=== PATIENT | male | born 1980 | race Two or more races ===

== ENCOUNTER 2021-06-30 10:24 | Inpatient (IN) | payer OTHER ==
[~2021-06-30] VITALS: Ht 182.9 cm; Wt 104.3 kg
[2021-06-30] MEDS ORDERED: ZOFRAN4 MG PO (10:51)
[2021-06-30] MEDS ORDERED: RITUXAN10 MG/1 ML IV (10:53)
[2021-06-30] MEDS ORDERED: AMBIEN5 MG PO (10:55)
[2021-06-30] MEDS ORDERED: BACLOFEN5 GM MISC (10:56)
[2021-06-30] MEDS ORDERED: TYLENOL325 M1 PO (10:56)
[2021-06-30] MEDS ORDERED: IBUPROFEN200 MG PO (10:56)
--- NOTE | 2021-06-30 13:44 | NUR ---
DR LOVE IN TO SEE PT
[2021-06-30] MEDS ORDERED: ONDANSETRON ODT8 MG PO (14:55)
[2021-06-30] MEDS ORDERED: BENZONATATE100 MG PO (14:55)
--- NOTE | 2021-06-30 15:38 | NUR ---
PT COMES TO THE FLOOR ALERT AND COOPERATIVE, [facility] 02 AT 5L NC SATS 98% TITRATED TO 2 LPM NC WHILE DOING ADMISSION PT SATS 93%-94% CONSISTANTLY. PT DENIES SOB OR DISCOMFORTS. EDUCATION PROVIDED REGARDING PRONING AND PT IS ABLE TO DEMONSTRATE I/S, USING IT EFFECTIVELY. PT VERBALIZES UNDERSTANDING AND AGREES HE WILL USE THE I/S FREQUENTLY THROUGHOUT THE DAY, RESTING IN DIFFERING POSITIONS INCLUDING ON HIS STOMACHE, AND THAT HE WILL GET UP TO THE CHAIR FREQUENTLY. PT DENIES FURTHER QUESTIONS. FRESH H20 AND NOON MEAL PROVIDED. ORIENTED TO ROOM AND CALL SYSTEM.
[2021-06-30] MEDS ORDERED: VITAMIN D350 MC3 PO (17:15)
--- NOTE | 2021-06-30 17:16 | NUR ---
MED REC COMPLETE
--- NOTE | 2021-06-30 17:50 | NUR ---
PT SATS DIPPING TO 89% CHECKED IN HE WAS SLEEPING. ENCOURAGED HIM TO RESUME USING THE I/S SATS RECOVER TO 94%. PT DENIES SOB. EVENING MEAL ORDERED. PT HAS BEEN UP INDEPENDENTLY IN THE ROOM, STEADY ON HIS FEET.
--- NOTE | 2021-06-30 20:01 | NUR ---
ON ROOM AIR, RESTING, PRONING ON HIS STOMACH, TELE#[address], SATS 90%, CLL LIGHT AND FLUIDS AT BEDSIDE. ON AIRBORNE ISOLATION PRECAUTIONS
--- NOTE | 2021-06-30 21:38 | NUR ---
Up to br, desatted to 79%, increaesd resp and sob noted on return. O@ increaed to 6LNC at this time, once he got back to bed, resp improvfed, prone self to R side. sats to 96%, after a few minutes O2 turned down to 4L, sats stable at 91-93%. comfortbal, stated he had bloody urine, noted 3 pink colored drops in toilet rim, none mixed w urine in toilet, urine clear yellow. pink colored scant amount in wiping paper. Pt declined Lovenox. dry non productive cough present, medicated with Tessalon perles and robotussin syrup w codeine. per sore throat and cough. tolerating fluids well. IVF infusing. tele cpox #[address] call light at bedside
--- NOTE | 2021-06-30 21:43 | NUR ---
DELI MANAGER ROUNDING NOTE. PT'S SA02 NOTED TO BE 84%-86% ON 2 LPM. PASSING THROUGH STATES TO INCREASE O2 TO 4. COMMERCIAL INSURANCE UNDERWRITER TO ROOM. PT REPORTS THAT HE HAS BEEN WORKING ON IS, CAUSING HIM TO COUGH. REPORTS SLIGHT SOB. SAO2 89% ON 4 LPM. VS OBTAINED, PRIMARY RN NOTIFIED OF INCREASED TEMP. PRIMARY RN TO ROOM. PT DENIES FURTHER NEEDS. CALL LIGHT IN REACH. WHITE BOARD UPDATED.
--- NOTE | 2021-06-30 22:28 | NUR ---
resting on his back, aware of proning positoning, turned to left by self, medicated with tylenol 650mg po temp 100.4. desatted to 84% on 4L again. increased to 5L, sats 90%, pt proning again to abd. coop. IVF bolus completed.
--- NOTE | 2021-07-01 00:02 | NUR ---
resting, proning on his abd, O24LNC in place, tele#[address], sats 91%
--- NOTE | 2021-07-01 02:01 | NUR ---
afebrile, skin very moist, bedding and gown changed. dried own skin. on 5LNC, desatted to mid 80's when up to br. sob w exertion noted on return. sats back to 90-93% when back to bed, proning self in bed. voided qs. R eye sclera red, no discharge.
--- NOTE | 2021-07-01 05:35 | NUR ---
PT ON 5L NC, LUNGS CRACKLES AND DIM L LUNGS, DIM R SIDE. TELE/CPOX #[address], HAS DESATTED WHEN UP TO BR. SOB WITH EXERTION PRESENT. DRY COUGH PRESENT, WAS MEDICATED WITH TOBOTUSSIN AND TESSALON PERLES, EFFECTIVE HAS BEEN PRONING SELF, SLEPT. TOLERATING DIET WELL, NO BM. VOIDING QS. HAD SCANT AMOOUNT OF LIGHT PINK DISCHARGE FROM URETHRAL, DR LOVE NOTIFIED. R SCLERA PINK COLORED, NO DRAINAGE. ALERT AND ORIENTED, USES CALL LIGHT
--- NOTE | 2021-07-01 06:54 | NUR ---
pt desatted to 70%, was resting on left side, awakes easily, c/o increaed resp and heavy breathing. R28 labored. proning positioning to abd, tele#[address], O2 increased from 5LNC to 10L, then down to to 6LNC at 0645,sats 94% for last 10 minutes, improved resp 22. still proning on his abd. cont on airborne isolation precautions
--- NOTE | 2021-07-01 07:35 | NUR ---
technical illustrator in room, pt sitting up in bed O2 ^LNC, moist non productive cough at this time, had takes o2 off to scratch his nase, desatted to 70%, denies sob. repositioned self in bed and went up to 88%. then a few minutes later started dessating again, pt was getting up to br. O2 6LNC, resp 26, sob noted on return. incoming RN Mercedes went to room to assess pt, pt stated he will do proning. tele#10 sats 92% changed to OXymask
--- NOTE | 2021-07-01 08:30 | NUR ---
REPORT RECEIVED FROM NIGHT RN AND PT. CARE RESUMED. THE TELE MONITOR SHOWED PT. O2 SAT WAS 73% AND THIS NURSE CHECKED ON PT. HE WAS UP TO THE BATHROOM AND TOOK SEVERAL MINUTES TO RECOVER. PT. BROUGHT URINAL TO BEDSIDE AND ADVISED TO NOT AMBULATE WITHOUT STAFF PRESENT. PT. UNDERSTANDS. PT. ASSISTED WITH PRONING WITH PILLOWS AND EDUCATED ON REPOSITIONING PROTOCOL FOR COVID. PT IS COMPLIANT AND EAGER. HE DENIES PAIN AT THIS TIME. PT. STATES HE BREATHES FROM MOUTH AND SWITCHED TO A OXYMASK. CRACKLES PRESENT IN BASES OF LUNGS. IV SITEW WNL AND FLUSH WELL. DISCUSSED SAFETY, MEDS AND POC. PT. LEFT RESTING WITH CALL LIGHT IN REACH.
--- NOTE | 2021-07-01 11:00 | NUR ---
MONITOR SHOWS PT. 02 SAT 83%. THIS NURSE CHECKED ON PT. HE IS ATTEMPTING TO SIT UP TO EAT. O2 TITRATED TO 13L HIGH FLOW NC WITH HUMMIDITY. PT. ABLE TO EAT FRUIT. PT. USED I.S. AFTER EATING AND RETURNED TO PRONING. ASSISTED WITH REPOSITIONING WITH PILLOWS. DECREASED O2 TO 10L AND O2 SAT WAS 93%. PT. LEFT RESTING WITH CALL LIGHT IN REACH.
--- NOTE | 2021-07-01 16:21 | NUR ---
PT. TITRATED DOWN TO 7L HIGH FLOW NC. O2 SAT REMAINS ABOVE 95%.
--- NOTE | 2021-07-01 19:42 | NUR ---
pt in bed laying left side, O2 11L high flow, tele#[address] his O2 had been increaed while sitting up in bed for dinner as he dessatetd form am shift. sats 80% at this time, labored breathing with turning R26, sob with exertion. O2 increaed to 15L, sats up to 96% after a few minutes, O2 weaned down to 6L. sats 92%, proning on his stomach, sats down to 83% again, O2 increased to 7L after 5 minutes, calmer, resp 22, sats 90-92%.
--- NOTE | 2021-07-01 21:37 | NUR ---
On 7L high flow/humidified O2 NC. tele#[address], desatted with exertion adn while moving/repositioning in bed to 80%, increaed to 10L and after a few minutes decreaed to 6L, stayed on the 82-85%, increaesd to 8L, proning to Left side, then to abd at this time, sats 89-91% 8L high flow, NC. lungs thigh and crackles bilat. sob with exertion present. much improved R eye redness. no drainage. using urinal, voiding qs. tolerating diet well, no emesis. CBG 136, no coverage needed. Alert and oriented, pleasant, cooperative, aware of proning and has been doing that w/o prompting, working on IS too. Moist productive cough of clear thick phlegm. medicated with tessalon perles and robitussin per cough and sore throat, nasal spray at bedside per dry nares. Pt instructed not to take O2 off when nose itches, stated understanding. call light at hands reach
--- NOTE | 2021-07-02 01:06 | NUR ---
DESATTED AGAIN WHEN TURNING, RT IN ROOM, O2 UP TO 12L HIGH FLOW, TELE#[address], SATS 90-91%, SOB WITH EXERTION
--- NOTE | 2021-07-02 02:26 | NUR ---
laying on his stomach, on O2 12 L, sats as per tele/cpox 90%
--- NOTE | 2021-07-02 03:39 | NUR ---
resting, laying on left side, O2 12L High flow NC, tele/cpox #[address], sats 89-91%, has voided, prones self. call light at hands reach
--- NOTE | 2021-07-02 06:11 | NUR ---
pt desatted to 70% when up to urinate at edge of bed on 12L high flow o2 nc. o2 increaed to 15L, took afew minutes to recover. Back on 12L NC, sats 96% laying on his abd proning position
--- NOTE | 2021-07-02 06:47 | NUR ---
pT HAS SLEPT OFF AND ON, INITIALLY AT BEGINING OF SHIFT HE WAS ON 7L HIGH FLOW O2 NC, DESATS WHEN REPOSITONING AND WHEN UP TO EDGE OF BED TO URINATE AND WHEN HE TAKES HIS O2 OFF NARES DUE TO DRINESS. HAS SALINE NASAL DROPS AT BEDSIDE. DROPPED TO LOW 70'S SATS. HAS BEEN INCREASED TO 05/14/10 AND AT CURRENT 12 LITERS, SOB AND INCREASED RESP RATE AND HYPOXIA WITH EXERTION. LUNGS WITH CRACKLES AND COARSE BNILAT ON INITIAL ASSESSMENT, CURRNT CLEAR UPPER LOBES AND CRACKLES AT BASES, MOIST PRODUCTIVE COUGH PRESENT. RECEIVED TESSALON PERLES AND COUGH SYRUP. EFFECTIVE. VOIDING DARK YELLOW URINE QS. TOLERATING SMALL AMOUNTS OF LIQUIDS, CBG 136, NO COVERAGE NEEDED. 2 SL PATENT. PT PRONES AND REPOSITONS SELF, COOP, TELE #[address] ON AIRBORNE ISOLATION PRECAUTIONS.
--- NOTE | 2021-07-02 07:29 | NUR ---
REPORT RECIEVED FROM MIRNA ZIGGY.
--- NOTE | 2021-07-02 08:56 | NUR ---
PT LAYING ON LEFT SIDE WITH NASAL CANNULA. SAT IN MID 80'S. ADMINISTERED MORNING MEDS AND CHECKED BS WNL. PT STATES HE IS FEELING MORE SOB THIS MORNING AND DID NOT SLEEP MUCH DURING THE NIGHT. THE ALARMS WERE TURNED ON ON THE TELE AND WOKE HIM FREQUENTLY. TURNED OFF ALARMS. LUNGS CLEAR. FREQUENT COUGH.
--- NOTE | 2021-07-02 09:49 | NUR ---
PATIENT SITTING UP IN BED TO EAT BREAKFAST. VITALS AND I&O'S CHARTED. CALL LIGHT IN REACH. NO FURTHER NEEDS AT THIST PIOTR.
--- NOTE | 2021-07-02 10:00 | NUR ---
PT LAYING ON BACK ORDERING SOME BREAKFAST. PT STATES HE IS FEELING A LITTLE BETTER THAN THIS MORNING. STARTED REMDESIVIR. PT DENIES HEADACHE OR CONCERNS.
--- NOTE | 2021-07-02 13:21 | NUR ---
PT DESATTED BRIEFLY AFTER TAKING HIS OX OFF TO BLOW HIS NOSE. STATES HE WILL ORDER LUNCH SHORTLY.
--- NOTE | 2021-07-02 16:10 | NUR ---
PT SATTING IN THE MID 80'S, STILL GIVING HIMSELF A BED BATH, THEN WILL DO 'TUMMY TIME'.
--- NOTE | 2021-07-02 18:52 | NUR ---
PT UP TO BEDSIDE COMMODE. TOLERATED WELL. ADDED AN EXTENSION ON THE OXY MASK TUBING. IS BRINGING DINNER TO FRONT. MED BM.
--- NOTE | 2021-07-02 21:30 | NUR ---
ASSESSMENT, VS AND I&O COMPLETED. SCHEDULED MEDS PROVIDED. PRN COUGH MED PROVIDED. SPO2 92% ON 10L OXYMASK. LUNGS CLEAR IN ALL LOBES. ABD SOFT, NONTENDER, BOWEL TONES ACTIVE. CMS INTACT. IVs WNL, CDI, FLUSHED WELL. NO OTHER NEEDS. CALL LIGHT IN REACH.
--- NOTE | 2021-07-02 23:35 | NUR ---
PT RESTING IN BED ON STOMACH, SPO2 93% ON 10L OXYMASK. CALL LIGHT IN REACH.
--- NOTE | 2021-07-03 02:25 | NUR ---
RESTING ON HIS ABD. [id number] 8L , TELECPOX IN PLACE, SATS 94%. NO DISTRESS, VOIDING LIGHT COLORED URINE. TOLERATING FLUIDS WELL
--- NOTE | 2021-07-03 02:58 | NUR ---
PT TURNED FROM PRONING ON HIS SOTMACH TO HIS LEFT SIDE, DESATTED TO 83-85%, ON 8L
--- NOTE | 2021-07-03 03:08 | NUR ---
PT TURNED TO HIS R SIDE, DESSATED TO 82%, ON 8L
--- NOTE | 2021-07-03 03:26 | NUR ---
O2 SATS PER TELE/CPOX 90% AT THIST PIOTR
--- NOTE | 2021-07-03 04:17 | NUR ---
PT PRONING ON HIS ABD AT THIS TIME, CPOX TELE 95% 8L O2.TURNS AND RESPOSITIONS SELF IN BED, ON AIRBORNE ISOLATION PRECAUTIONS
--- NOTE | 2021-07-03 06:25 | NUR ---
O2 sats at 86-88% since weaning off down to 7L. nurse went to room pt was coughing moderate amount of clear-yellow phlegm, took Oxymask off when coughing and blowing nose and sitting up position in bed. dessatted to 70%, O2 increaed to 15L, took a few minutes to recuperate. O2 weaned down to 8L Oxymask again, pt aware of proning positioing, wanted to stay on his back for a little while as "its hard for me to be on my stomach when Tay coughing', sats 90% on 8L on his back.
--- NOTE | 2021-07-03 06:41 | NUR ---
Pt continues on Airborne isolation precautions, on 8L Oxymask at this time. was unable to tolerate weaning down to 7L. Has been weaning up to 15L earlier this shift when he was sitting up coughing and blowing nose and taken O2 off and dessated to 70%. O2 weaned down back to 8L after a few minutes, increased resp rate and labored breathing noted. Lungs with crackles. Pt does proneing positioning often. tolerating liquids well, 2 sl patent. has slept off and on. alert, oriented, cooperative
--- NOTE | 2021-07-03 06:52 | NUR ---
turned self to R side, dessated to 83%, Repositioned back to abd at this time again, on 8L sats as per cpox 96%
--- NOTE | 2021-07-03 07:26 | NUR ---
REPORT RECIEVED FROM MIRNA TRINH.
--- NOTE | 2021-07-03 09:02 | NUR ---
PATIENT GIVEN MORNING MEDICATIONS, SITTING UP TO EAT BREAKFAST AND IS ON NC @ 10L WITH 92% SATS.
--- NOTE | 2021-07-03 10:08 | NUR ---
DR. LOVE IN TO SEE PATIENT. PATIENT WEARING NASAL CANNULA @ 10L TO KEEP SATS AT 91%. TRIAL AT 8L AND PATIENT SATS WERE 88% AND PATIENT RESUMED ON 10L.
--- NOTE | 2021-07-03 10:27 | NUR ---
PATIENT IN BED RESTING WITH EYES CLOSED. VITALS AND I&O'S CHARTED. CALL LIGHT IN REACH. NO FURTHER NEEDS AT THIS TIME.
--- NOTE | 2021-07-03 10:46 | NUR ---
PATIENT IS LYING ON RIGHT SIDE 8L OXYMASK IS ON. PATIENT ONLY ABLE TO EAT 5% OF BREAKFAST. ENCOURAGED PATIENT TO INCREASE PO FLUIDS.
--- NOTE | 2021-07-03 12:26 | NUR ---
DUE TO PRECAUTIONS, I AM UNABLE TO VISIT PT AT THIS TIME. WILL FOLLOW
--- NOTE | 2021-07-03 12:49 | NUR ---
PATIENT IS RESTING IN BED, ENCOURAGED PRONE, 89% O2 SATS.
--- NOTE | 2021-07-03 15:12 | NUR ---
SPOKE WITH PATIENT BY PHONE. PATIENT LIVES AT HOME WITH AND KIDS. IS EMPLOYED. DRIVES AND IS INDEPENDENT WITH AMBULATION. USES NO DME. DISCUSSED POSSIBLE OXYGEN NEED AT DISCHARGE. HE HAS NO PREFERENCE ON WHO TO USE. HE IS NOT SURE HE HAS A NEBULIZER IF NEEDED. THINKS ONE OF THE KIDS MIGHT HAVE ONE. PLANS TO DISCHARGE WITH FAMILY AND FEELS SAFE TO DO SO. FEELS HE HAS FINANCES TO PAY FOR MEDICATIONS, FOOD AND NO WORRIES OF UTILITIES TURNED OFF. PT HAS NO QUESTIONS AT THIS TIME.
--- NOTE | 2021-07-03 15:25 | NUR ---
PATIENT IS PRONING WITH O2 SATS 96%.
--- NOTE | 2021-07-03 16:14 | NUR ---
CALL BACK TO PATIENT'S , LENI, WITH UPDATE.
--- NOTE | 2021-07-03 18:04 | NUR ---
PATIENT IN BED RESTING. VITALS AND I&O'S CHARTED. CALL LIGHT IN REACH. NO FURTHER NEEDS AT THIS TIME.
--- NOTE | 2021-07-03 18:26 | NUR ---
PATIENT IS SITTING UP IN BED TO TRY AND EAT SOME DINNER. PATIENT REMAINS ON 8L, LUNG SOUNDS HAVE LARGELY REMAINED THE SAME THIS MORNING WITH FINE CRACKLES, GOOD AIR MOVEMENT HEARD THROUGHOUT.
--- NOTE | 2021-07-03 19:45 | NUR ---
RECEIVED REPORT FROM DAY SHIFT RN. PATIENT IS RESTING IN BED WATCHING TV. PATIENT DENIES ANY NEEDS. CALL LIGHT IN REACH.
--- NOTE | 2021-07-03 22:50 | NUR ---
PATIENT ASSESMENT COMPLETED. PATIENTS SCHEDULED MEDICATIONS GIVEN PER ORDER. PATIENT DENIES ANY SOB. PATIENT REMAINS ON 8L VIA OXYMASK. PATIENT DENIES ANY PAIN. VITALS TAKEN AND RECORDED. INTAKE AND OUTOUT RECORDED. PATIENTS IV SL X2 AND FLUSH WELL. PATIENT DENIES ANY NEEDS. CALL LIGHT AND BELONGINGS ARE WITHIN REACH.
--- NOTE | 2021-07-03 23:53 | NUR ---
PATIENT IS RESTING IN BED WITH EYES CLOSED, RR 18. CALL LIGHT IN REACH.
--- NOTE | 2021-07-04 01:45 | NUR ---
PATIENT RESTING IN BED ON HIS LEFT SIDE WITH EYES CLOSED, RR 20. CALL LIGHT IN REACH.
--- NOTE | 2021-07-04 03:43 | NUR ---
PATIENT IS RESTING IN BED ON HIS RIGHT SIDE WITH EYES CLOSED, RR 22. TELE # 10 OXYGEN SATURATION IS 98% ON 8L VIA OXYMASK. PATIENTS CALL LIGHT IN REACH.
--- NOTE | 2021-07-04 06:00 | NUR ---
PATIENT ASSESMENT COMPLETED. PATIENT GIVEN PRN COUGH MEDICATION PER ORDER. PATIENT REPORTS SLIGHT SOB. PATIENT ENCOURAGE TO PURSED LIP BREATH AND FOCUS ON SLOWING HIS BREATHING. PATIENT WAS ABLE TO SLOW BREATHING. VITALS TAKEN AND RECORDED. INTAKE AND OUPUT RECORDED. PATIENT DENIES ANY PAIN. PATIENT DENIES ANY NEEDS. URINAL EMPTIED. CALL LIGHT AND BELONGINGS ARE WITHIN REACH.
--- NOTE | 2021-07-04 07:38 | NUR ---
this rn received report from gume castañeda. pt appears to resting this am with cpox in place.
--- NOTE | 2021-07-04 09:00 | NUR ---
THIS RN IN PTS ROOM. PT GOT UP TO USE THE URINAL ON 7L OXYMASK. PT DESATED AND SUSTAINED IN THE 70S THIS RN PLACED PT ON 15L NONREBREATHER, PT SATS IMPROVED WITHIN 2 MINS TO MID 90S. PER THIS RN TO PLACE A ROSALES CATH FOR PT TO RESUME BEDREST. PT DID HAVE A BM AFTER ROSALES PLACEMENT- PT WAS ABLE TO GET UP TO BEDISDE COMMODE WITHOUT DROPPING BELOW 90%
--- NOTE | 2021-07-04 10:20 | NUR ---
THIS RN TRASFERRED PT OVER TO CCU, GAVE REPORT TO RODNEY AND TK RNS.
--- NOTE | 2021-07-04 10:55 | NUR ---
PT ARRIVED TO CCU AT 1030 VIA BED ALERT AND ORIENTED ON THE NONREBREATHER MASK. PT PLACED ON WALL O2 15L ON THE NRB. BEDSIDE REPORT RECEIVED BY MIRNA GARCIA. PT VITALS TAKEN PT ASSESSED UPON ARRIVAL, PT DENIES SOB ON THE NRB MASK, TACHYPNEA NOTED WITHA RR IN THE 35-40 RANGE, INSPIRATORY WHEEZES NOTED ON LEFT LUNG. AXILLARY TEMPERATURE NOTED TO BE 102.5. PT NOW RESTING IN ROOM ON 15L O2 NRB MASK, PT REPORTS NO FURTHER NEEDS AT THIS TIME WHEN ASKED, CALL LIGHT IN REACH, BED IN LOWEST POSITION, IV MEDICATION COMPLETE, PT SALINE LOCKED. DR. HERNÁNDEZ NOTIFIED OF PT'S FEVER, NEW ORDERS GIVEN FOR BLOOD CULTURES AND A LACTIC ACID. WILL CONTINUE PLAN OF CARE CALL LIGHT IN REACH, BED IN LOWEST POSITION, PT SPO2 96-99% AT THIS TIME.
--- NOTE | 2021-07-04 11:08 | NUR ---
THIS RN CALLED PTS AND UPDATED HER ON THE MOVE OF THE PT.
--- NOTE | 2021-07-04 12:00 | NUR ---
THIS RN IN TO ADMINISTER PRN TYLENOL, BLOOD CULTURES HAVE ALREADY BEEN DRAWN BY LAB. PT LAYING IN BED ON HIS RIGHT SIDE AT THIS TIME ON 15L NRB, AXILLARY TEMPERATURE 102.3. PRN TYLENOL ADMINISTERED (SEE DEC). PT NOTED TO STILL HAVE TACHYPNEA AND IS TAKING SHALLOW BREATHS. RT NOTIFIED, RT TO NOTIFY DR. HERNÁNDEZ AT THIS TIME TO CHANGE PT OVER TO VAPOTHERM. PT NOW RESTING ON HIS SIDE, NRB AT 15L, PT REPORTS NO FURTHER NEEDS, WILL CONTINUE PLAN OF CARE. CALL LIGHT IN REACH, BED IN LOWEST POSITION.
--- NOTE | 2021-07-04 12:25 | NUR ---
RT IN ROOM AT THIS TIME PLACING PT ON VAPOTHERM, WILL CONTINUE PLAN OF CARE.
--- NOTE | 2021-07-04 12:32 | NUR ---
PATIENT AWAKE IN BED, VITALS AND I&OS CHARTED. ROSALES EMPTIED. RT IN ROOM TO FIT PATIENT WITH VAPOTHERM. CALL LIGHT AND PERSONAL ITEMS IN EASY REACH
--- NOTE | 2021-07-04 12:37 | NUR ---
PT IN PROCESS TO BEING MOVED TO UNIT. WILL FOLLOW THERE TO THE UNIT. WILL FOLLOW UP THERE
--- NOTE | 2021-07-04 14:39 | NUR ---
ANSWERED CALL LIGHT, PATIENT REQUESTED ASSISTANCE IN PRONING. THIS RAILROAD POLICE OFFICER AND RN IN ROOM. PATIENT ON STOMACHA AT THIS TIME, VAPOHERM IN PLACE 40L/50 FIO2, TOLERATING WELL. CALL LIGHT IN REACH
--- NOTE | 2021-07-04 14:40 | NUR ---
RESPONDED TO PT CALL LIGHT, PT LAYING IN BED ON THE VAPOTHERM AT 60% FIO2, 40L. PT ALERT AND ORIENTED. PT STATED THAT HE WANTED TO PRONE. THIS RN AND SANITATION MANAGERAllie WHITFIELD IN ROOM TO ASSIST PT IN PRONING. PT ABLE TO PRONE WITHOUT ASSISTANCE, BED PLACE IN [place] AFTER PT PRONED. PT REPORTS THAT THE VAPOTHERM SEEMS MUCH MORE EFFECTIVE FOR HIS BREATHING COMPARED TO HIS NONREBREATHER MASK. PT REPORTS NO FURTHER NEEDS AT THIS TIME AND IS NOW PRONING. FIO2 TITRATED DOWN TO 50% AT THIS TIME, SPO2 95%. PT REPORTS NO FURTHER NEEDS AT THIS TIME, CALL LIGHT IN REACH, BED IN LOWEST POSITION, WILL CONTINUE PLAN OF CARE.
--- NOTE | 2021-07-04 16:35 | NUR ---
THIS RN IN TO ASSESS PT. PT LAYING IN BED ON LEFT SIDE AND HAD JUST FINISHED PRONING SINCE 1430. PT SPO2 87-88% ON HIS SIDE, FIO2 ON VAPOTHERM WAS INCREASED TO 60% AT THIS TIME, SPO2 NOW AT 90-92%. VITALS TAKEN AT THIS TIME AND ASSESSMENT COMPLETED. PT NOTED TO HAVE WHEEZES IN THE BASES WHEN ASSESSED, PT DENIES SHORTNESS OF BREATH WHEN ASKED. PT REPORTS NO FURTHER NEEDS AT THIS TIME WHEN ASKED AND IS RESTING ON HIS LEFT SIDE, VAPOTHERM AT 40LPM 60% FIO2, CALL LIGHT IN REACH, BED IN LOWEST POSITION. RT NOTIFIED OF PT'S WHEEZING, PRN DOSE OF NEB TREATMENT TO BE GIVEN BY RT, WILL CONTINUE PLAN OF CARE.
--- NOTE | 2021-07-04 17:40 | NUR ---
THIS RN IN TO ADMINISTER SCHEDULED INSULIN AND BRING PT HIS LUNCH. PT IN BED ON THE VAPOTHERM AT PREVIOUS SETTINGS, SPO2 92-94%. PT TURNED TO HIS RIGHT SIDE AT THIS TIME. PT DENIES HAVING ANY PAIN OR SHORTNESS OF BREATH. 1 UNIT INSULIN GIVEN PER SLIDING SCALE. PT REPORTS NO FURTHER NEEDS AT THIS TIME WHEN ASKED, WILL CONTINUE PLAN OF CARE. CALL LIGHT IN REACH, BED IN LOWEST POSITION. VAPOTHERM SETTINGS UNCHANGED, SPO2 92-94%.
--- NOTE | 2021-07-04 20:23 | NUR ---
PATIENT IN FULL PRONE POSITION, O2 SATS 85% ON 40L 60% FI02. PATIENT RESTING COMFORTABLY. TITRATED TO 80% Fi02. PATIENT DENIED NEEDS. O2 SATS IMPROVED TO 90%. RR 30.
--- NOTE | 2021-07-04 21:15 | NUR ---
PATIENT ASSISTED TO TURN TO HIS BACK AND SIT UP. TOLERATED WELL. PM MEDS PROVIDED. PATIENT DENIED FEELING SOB, PAIN OR NAUSEA. ENCOURAGED FLUIDS, URINE IS MBER COLORED. PROVIDED SUPPLIED FOR PATIENT TO DO CATH CARE. PATIENT LUNG SOUNDS ARE CLEAR IN THE HORTENCIA UPPER LOBES, DIM IN THE BASES. VAPOTHERM 40L 60% Fi02. ORAL TEMP 99.1F PATIENT DENIED FEELING CHILLED OR HOT. PATIENT IS DRINKING ENSURE AND USING HIS PHONE. DISCUSSED USE OF HOME CPAP, PATIENT WOULD LIKE TO DO THIS FOR THE EVENING. RT CONTACTED.
--- NOTE | 2021-07-04 23:11 | NUR ---
2240 Attempted to fit patient for CPAP, then BiPAP via Vision and medium facemask at this time. Initial settings wilmer Vapotherm at 40LPM and 80% FIO2. Patient tried at CPAP 8-16, and BiPAP at 8-16/6-12 and with 100% O2 but saturations fell quickly into the low 80-percentile and were unrecovered. He was returned to his Vapotherm at previous settings with nearly immediate recovery into the [id number]-90-percentile for saturations. RN informed of his inability to tolerate change and Vision left in room. His home machine, for nocturnal CPAP, was in the original packaging and in pristine condition: patient states he had never actually used it before.
--- NOTE | 2021-07-05 00:05 | NUR ---
patient desat after repositioning in bed. recovered quickly. in prone position. vapotherm 40L 80% Fi02. rr 25-30's.
--- NOTE | 2021-07-05 02:45 | NUR ---
PATIENT REPOSITIONED AND DESAT. RN ENTERED ROOM TO ASSESS PATIENT. PATIENT HAD TURNED TO THE LEFT SIDE WITH HIS ROSALES ON THE RIGHT SIDE OF THE BED CAUSING TENSION AND PAIN. VAPOTHERM HAD ALSO BECOME KINKED AND NOT FLOWING. MOVED ROSALES AND ASSESSED AREA, NO TRAUMA NOTED. VAPOTHERM FIXED AND PATIENT'S O2 SATS IMPROVED. PATIENT REPORTS LESS PAIN IN PENIS AND MORE COMFORTABLE IN THIS POSITION. ENCOURAGED PATIENT TO CALL FOR ANY NEEDS.
--- NOTE | 2021-07-05 06:25 | NUR ---
PATIENT APPEAS TO BE SLEEPING SOUNDLY. ROSALES EMPTIED, URINE IS MARVIN IN COLOR. VAPOTHERM 40L 80% Fi02, RR 30-40'S. PATIENT WOKE EASILY. DENIED NEEDS. IN FULL PRONE POSITION. DENIES PAIN FROM ROSALES THIS MORNING. CALL LIGHT IN REACH.
--- NOTE | 2021-07-05 07:42 | NUR ---
REPORT RECEIVED FROM NIGHTSHIFT RN, WILL CONTINUE PLAN OF CARE.
--- NOTE | 2021-07-05 08:29 | NUR ---
PATIENT RESTING IN BED, WOKE TO VOICE. GLUCOSE CHAECKED AND CHARTED. BREAKFAST AND FRESH ICE WATER PROVIDED. RT HEATHER IN ROOM PATIENT ASKS " AM I DOING BETTER?" RT EDUCATING PATIENT ON VAPOTHERM AND AMOUNT OF OXYGEN BEING USED AT THIS TIME, PATIENT UNDERSTANDS. ROSALES EMPTIED. CALL LIGHT AND PERSONAL ITEMS IN REACH
--- NOTE | 2021-07-05 09:31 | NUR ---
THIS RN IN TO ASSESS PT AND ADMINISTER SCHEDULED MEDICATIONS. PT DENIES HAVING ANY PAIN AT THIS TIME BUT REPORTS HAVING A COUGH AND REQUESTED PRN COUGH MEDICATION. SCHEDULED MEDICATIONS ADMINISTERED ALONG WITH PRN COUGH MEDICATION, NO INSULIN GIVEN PER SLIDING SCALE. PT THEN ASSESSED, LUNGS CLEAR IN UPPER LOBES AND DIMINISHED/COARSE IN LOWER LOBES. PT THEN LAYED OVER ONTO HIS LEFT SIDE, AND IS NO RESTING ON THE VAPOTHERM AT 40LPM 70% FIO2, SETTINGS UNCHANGED ON VAPOTHERM AT THIS TIME. PT REPORTS NO FURTHER NEEDS WHEN ASKED AT THIS TIME, WILL CONTINUE PLAN OF CARE. CALL LIGHT IN REACH, BED IN LOWEST POSITION.
--- NOTE | 2021-07-05 10:13 | NUR ---
RESPONDED TO PT CALL LIGHT , PT STATED HE WANTED ASSISTANCE IN PRONING. PT ON THE VAPOTHERM ALERT AND ORIENTED VAPOTHERM AT 40LPM 70% FIO2. PT ASSISTED WITH MANAGING CORDS AND ROSALES CATHETER, PT ABLE TO ASSUME POSITION WITHOUT ASSISTANCE AND IS NOW PRONING. FIO2 MOMENTARILY INCREASED TO 100% WHILE PT WAS CHANGING POSITIONS AND IS NOW BACK TO 70% FIO2. PT NOW RESTING, SPO2 95%, PT REPORTS NO FURTHER NEEDS WHEN ASKED, CALL LIGHT IN REACH, BED IN LOWEST POSITION, WILL CONTINUE PLAN OF CARE.
--- NOTE | 2021-07-05 11:07 | NUR ---
RT IN ROOM AT THIS TIME WITH PT. CPAP SETTINGS ADJUST BY RT, PT BACK ON VAPOTHERM ON THIS TIME RESTING IN BED. VAPOTHERM AT PREVIOUS SETTINGS 40LPM 70% FIO2, SPO2 AT 91%, NO NEEDS REPORTED AT THIS TIME WILL CONTINUE PLAN OF CARE. CALL LIGHT IN REACH, BED IN LOWEST POSITION, RT IN ROOM WITH PT AT THIS TIME.
--- NOTE | 2021-07-05 11:30 | NUR ---
PT CHECKED ON AT THIS TIME, PT LAYING ON HIS RIGHT SIDE ON THE VAPOTHERM, SETTINGS UNCHANGED. PT LUNCH ORDER TAKEN AT THIS TIME, PT REPORTS NO FURTHER NEEDS AT THIS TIME WHEN ASKED, CALL LIGHT IN REACH, BED IN LOWEST POSITION, WILL CONTINUE PLAN OF CARE.
--- NOTE | 2021-07-05 12:40 | NUR ---
THIS RN IN TO ASSESS PT AND CHECK BLOOD SUGAR. PT LAYING IN BED ON HIS SIDE ON THE VAPOTHERM AT 40LPM 70% FIO2. BLOOD SUGAR ASSESSED AND INSULIN HELD PER SLIDING SCALE. PT ASSESSMENT COMPLETED AT THIS TIME AND VITALS TAKEN. TEMPERATURE NOTED TO BE 100.1, PT DENIES ANY FEELINGS OF CHILLS, WARMTH, OR PAIN AT THIS TIME. PT NOW EATING HIS LUNCH AND REPORTS NO FURTHER NEEDS AT THIS TIME WHEN ASKED, CALL LIGHT IN REACH, BED IN LOWEST POSITION, WILL CONTINUE PLAN OF CARE.
--- NOTE | 2021-07-05 13:05 | NUR ---
THIS RN IN TO ADMINISTER PRN TYLENOL AT THIS TIME FOR AN ELEVATED TEMPERATURE (SEE CHART). PT SITTING UP IN BED EATING HIS LUNCH AT THIS TIME. PRN TYLENOL ADMINISTERED AT THIS TIME (SEE MAR). PT REPORTS NO FURTHER NEEDS AT THIS TIME AND IS STILL ON THE VAPOTHERM, SETTINGS UNCHANGED. WILL CONTINUE PLAN OF CARE. CALL LIGHT IN REACH, BED IN LOWEST POSITION.
--- NOTE | 2021-07-05 13:40 | NUR ---
RESPONDED TO PT CALL LIGHT, PT LAYING IN BED AT THIS TIME ON THE VAPOTHERM AT PREVIOUS SETTINGS. PT REPORTS THAT HE NEEDS TO USE THE BEDSIDE COMMODE TO HAVE A BM. PT FIO2 INCREASED TO 100%, PT ABLE TO GET UP AND NEEDED ASSISTANCE ONLY WITH MANAGING CORDS, PT ABLE TO HAVE A BM AND MAINTAIN HIS SPO2 AT 90-92%, HR NOTED TO INCREASE TO 110'S. PT WENT ON TO THE BEDSIDE RECLINER AFTER FINISHING. LINENS CHANGED AT THIS TIME. PT REPORTS NO FURTHER NEEDS WHEN ASKED AT THIS TIME, PT BACK DOWN TO 70% FIO2 ON THE RECLINER, SPO2 90-92%. CALL LIGHT IN REACH, BED IN LOWEST POSITION, WILL CONTINUE PLAN OF CARE.
--- NOTE | 2021-07-05 14:55 | NUR ---
THIS RN IN TO CHECK ON PT. PT LAYING IN BED AWAKE AND ALERT ON THE VAPOTHERM AT 40LPM 70% FIO2. PT REPORTS NO NEEDS WHEN ASKED AT THIS TIME, TEMPERATURE REASSESSED AND IS 100.0 AXILLARY. PT DENIES ANY FEELINGS OF CHILLS BUT DOSE STATE HE FEELS WARM, PT WAS PROVIDED WITH FAN BY THEA WHITFIELD BEFORE THIS RN WENT IN AND PT STATES IT FEELS MUCH BETTER WITH IT. PT REPORTS NO FURTHER NEEDS WHEN ASKED AT THIS TIME, WILL CONTINUE PLAN OF CARE. CALL LIGHT IN REACH, BED IN LOWEST POSITION.
--- NOTE | 2021-07-05 15:00 | NUR ---
THIS EXPEDITION SUPERVISOR IN ROOM TO ASSIST PATIENT WITH WASHING LEGS AND BACK. PATIENT PREFERS TO WASH THE REST OF HIS BODY HIMSELF. WARM WIPES AND SHOWER CAP PROVIDED. CALL LIGHT IN REACH.
--- NOTE | 2021-07-05 16:20 | NUR ---
THIS RN IN TO ASSESS PT, PT LAYING IN BED SLEEPING WHILE ON THE VAPOTHERM AT 40LPM 70% FIO2, SPO2 90-94%. PT VITALS TAKEN AND PT ASSESSED. FINE CRACKLES NOTED IN BASES OF LUNGS BILATERALLY, UPPER LOBES ARE CLEAR. PT ENCOURAGED TO USE THE I.S. PT STATES HE HAS BEEN USING IT AND WAS ABLE TO DO IT 5X CORRECTLY. PT ALSO USING ACAPELLA WELL. PT DENIES HAVING SOB AND DENIES HAVING ANY PAIN OR THE NEED FOR COUGH MEDICATION. PT REPORTS NO FURTHER NEEDS AT THIS TIME WHEN ASKED, WILL CONTINUE PLAN OF CARE. CALL LIGHT IN REACH, BED IN LOWEST POSITION.
--- NOTE | 2021-07-05 17:45 | NUR ---
THIS RN IN TO BRING PT HIS DINNER AND CHECK PT'S BLOOD SUGAR. PT LAYING IN BED AND WAS ABLE TO SIT UP IN BED TO EAT DINNER. 1 UNIT OF INSULIN ADMINISTERED PER SLIDING SCALE PRIOR TO PATIENT EATING (SEE MAR). PT IS STILL ON THE VAPOTHERM, SPO2 MAINTAINING AT 90-94%. PT REPORTS NO FURTHER NEEDS AT THIS TIME AND IS NOW EATING DINNER. WILL CONTINUE PLAN OF CARE. CALL LIGHT IN REACH, BED IN LOWEST POSITION.
--- NOTE | 2021-07-05 18:40 | NUR ---
THIS RN IN TO ASSIST PT WITH PRONING. PT ON THE VAPOTHERM AT THIS TIME ON 40LPM 70% FIO2. PT ASSISTED WITH WIRE/CORD MANAGEMENT AND WAS ABLE TO PRONE WITHOUT ASSISTANCE. PT NOW PRONING IN [place]. PT REPORTS NO FURTHER NEEDS AT THIS TIME AND IS NOW RESTING, SPO2 AT 95-97%, FIO2 TITRATED DOWN TO 65% ON VAPOTHERM AT THIS TIME. PT SPO2 NOW MAINTAINING AT 92%. PT REPORTS NO FURTHER NEEDS WHEN ASKED AND DENIES SOB OR PAIN, WILL CONTINUE PLAN OF CARE. CALL LIGHT IN REACH, BED IN LOWEST POSITION.
--- NOTE | 2021-07-05 19:59 | NUR ---
PATIENT RESTING IN PRONE POSITION. VAPOTHERM 40L 60% Fi02. ASSISTED TO COVER PATIENT AND PROVIDED A PILLOW. PATIENT REQUESTING TO WAIT ON HIS EVENING MEDS FOR A WHILE. WILL CALL WHEN READY. CALL LIGHT IN REACH.
--- NOTE | 2021-07-05 22:06 | NUR ---
EVENING MEDS PROVIDED PER ORDERS. PATIENT REQUEST PRN TYLENOL FOR GENERAL ACHES/PAINS AND ORN COUGH MEDS. PATIENT FEELS THAT HIS BREATHING AND ENERGY ARE BETTER TONIGHT. TOLERATING 40L 65% Fi02. RR 20'S. ORAL TEMP WNL. LUNG SOUNDS ARE COARSE IN RUL AND FINE CRACKLES IN THE HORTENCIA BASES. PATIENT HAS STRONG PRODUCTIVE COUGH. ASSISTED PATIENT TO TURN TO HIS RIGHT SIDE. RT IN FOR CPT TREATMENT.
--- NOTE | 2021-07-06 00:43 | NUR ---
PATIENT ASSISTED WITH REPOSITIONING AND ROOM TEMP ADJUSTED. PATIENT DENIES ANY CONCERNS AT THIS TIME. TOLERATING 40L 65% Fi02 WELL. CALL LIGHT IN REACH.
--- NOTE | 2021-07-06 01:51 | NUR ---
assisted pt up to bsc x1 assist. mahin well, fi02 increased to 100% for activity. pt has small bm and did own pericare. assited back to bed, pt to turn to left side. side rails up, call light in reach, denies further needs
--- NOTE | 2021-07-06 06:00 | NUR ---
PATIENT REPORTS DIFFICULTY SLEEPING AND FEELS TIRED THIS MORNING. PATIENT TOLERATING VAPOTHERM 40L 65% Fi02. RR 20'S. ROSALES EMPTIED, URINE IS CONCENTRATED. LUNG SOUNDS ARE COARSE WITH CRACKLES IN THE BASES. ENCOURAGE COUGH AND DEEP BREATHING. ASSISTED PATIENT TO REPOSITION. CALL LIGHT IN REACH.
--- NOTE | 2021-07-06 08:35 | NUR ---
PT IS AWAKE AND ALERT X4. PT DENIES NAUSEA, SOB, PAIN. PT STATES THAT HE WILL TRY TO EAT BREAKFAST THAT IS BROUGHT IN, HE REPORTS DECREASED APPITITE. PT HAS FEVER OF 100.4, 650 MG PO TYLENOL GIVEN. BOTH IV SITES ARE INTACT, NO REDNESS OR SWELLING NOTED, FLUSH EASILY. PT IS COOPERATIVE AND POLITE. PT REPORTS EXPECTORATING LARGE AMOUNT OF THICK CLEAR/WHITE SPUTUM. ALL OTHER VITALS ARE WNL AT THIS TIME. THEA WHITFIELD, IS IN THE ROOM WELL.
--- NOTE | 2021-07-06 09:52 | NUR ---
THIS CAN CLOSING MACHINE OPERATOR IN ROOM WITH BREAKFAST, PATIENT AWAKE IN BED. ROSALES EMPTIED AND VITALS CHARTED. RT AT BEDSIDE. CALL LIGHT AND PERSONAL ITEMS IN EASY REACH
--- NOTE | 2021-07-06 12:30 | NUR ---
PT ASSESSMENT IS WNL. PT DEMONSTRATED ABILITY TO WALK AROUND THE EDGE OF THE BED TO THE CHAIR. PT ROSALES REMOVED SUCESSFULLY, PT CRYSTAL WELL. PT IS ALERT AND ORIENTED X4, COOPERATIVE AND POLITE. BOTH IV SITES ARE INTACT, FLUSH EASILY, PT DENIES PAIN AT EITHER SITE. PT DENIES PAIN AT THIS TIME.
--- NOTE | 2021-07-06 13:21 | NUR ---
THIS SAP SPECIALIST AND RN DAVID IN ROOM, VITALS CHARTED. PATIENT O2 SATS REMAINING ABOVE 88% FOR SEVERAL MINUTES WHILE STANDING AT BEDSIDE ON VAPOTHERM. ROSALES REMOVED. PATIENT AMBULATED ACROSS ROOM WITH RN TO RECLINER FOR LUNCH, TOLERATED WELL. LINENS CHANGED. PERSONAL ITEMS AND CALL LIGHT IN EASY REACH. NO OTHER NEEDS AT THIS TIME
--- NOTE | 2021-07-06 15:32 | NUR ---
ASSISTED PT TO BSC AND THEN BACK TO BED. PT NOW ON HIS LEFT SIDE.
--- NOTE | 2021-07-06 16:40 | NUR ---
PT IS OUTSIDE THE ROOM TALKING WITH THE PT VIA TEXT GLASS DOOR IS CLOSED. BOTH PT AND [employer] GRATITUDE.
--- NOTE | 2021-07-06 17:40 | NUR ---
TITRATED PT VAP TO 35L/65%, PT ABLE TO CRYSTAL WELL. WILL CONTINUE TO MONITOR.
--- NOTE | 2021-07-06 19:57 | NUR ---
REPORT RECEIVED FROM DAVID BRADLEY. PT IN BED, PRONE POSITION SPO2 96%.
--- NOTE | 2021-07-07 00:10 | NUR ---
IN TO DO VS AND ASSESSMENT, PT IN PRONE POSITION ON VAPOTHERM 35/65%, DENIES NEEDS.
--- NOTE | 2021-07-07 01:20 | NUR ---
PT UP TO VOID, SPO2 DOWN TO 83% WHILE UP ON VAPOTHERM, THEN SLOWLY BACK UP TO 88-89%.
--- NOTE | 2021-07-07 03:55 | NUR ---
IN TO CHECK ON PT, PT IN PRONE POSITION APPEARS RESTFUL, SPO2 94% ON VAPOTHERM 35/65%. WILL LET PT CONT TO SLEEP.
--- NOTE | 2021-07-07 04:41 | NUR ---
IN TO CHECK ON PT HIS HR WAS GOING UP, HE WAS USING URINAL AT SIDE OF BED, ASKED HIM TO CALL NEXT TIME FOR ASSISTANCE. SPO2 DROPPED DOWN TO 82%. PT THEN HAD COUGHING FIT AND WAS BLOWING HIS NOSE AND HIS SATS DROPPED TO 70% WITH EXERTION. PT RECOVERED FOR A FEW MINUTES WITH FIO2 UP TO 100%, THEN ASSISTED INTO PRONE POSITION AND FIO2 EVENTUALLY TURNED DOWN TO 70% WITH SPO2 GETTING UP TO 91%, RR 30 AND HR 90'S. CALL LIGHT IN HAND AND PT REMINDED TO CALL NEXT TIME HE NEEDS TO DO ANYTHING.
--- NOTE | 2021-07-07 06:52 | NUR ---
PT CALLED TO ASK IF HE COULD HAVE ASSISTANCE WITH BLOWING HIS NOSE AND USING URINAL. PT LOOKED FLUSHED AND DIAPHORETIC, ALSO HR HAS BEEN INCREASED OVER LAST HOUR. TEMP CHECKED: 103.3 ORAL, 100.4 AXILLARY, RECHECK ORAL 101.7. TYLENOL GIVEN. PT ASSISTED UP TO USE URINAL WITH FIO2 TURNED UP TO 100% ON VAPOTHERM. SATS STAYED IN HIGH 80'S DURING ACTIVITY, HR UP TO 140'S. PT BACK TO BED, RECOVERED, THEN REMOVED O2 TUBING TO BLOW HIS NOSE AND SATS GOT LOW 70% THEN STOPPED PT TO PUT OXYGEN BACK ON AND STOP BLOWING HIS NOSE. COUGH MEDICINE GIVEN WELL HR IS GOING UP TO 120-140 WHEN PT IS COUGHING OR BLOWING HIS NOSE, PT HAS LARGE AMOUNT OF SPUTUM WITH PRODUCTIVE COUGH THIS MORNING. DR HERNÁNDEZ UPDATED ON PTS FEVER AND INCREASED HR, ORDER GIVEN TO DO A CHEST XRAY.
--- NOTE | 2021-07-07 08:40 | NUR ---
THIS RN IN TO ASSESS PT. PT LAYING IN BED ALERT AND ORIENTED X 4. PT VITALS TAKEN AT THIS TIME AND SCHEDULED MEDICATIONS ADMINISTERED AT THIS TIME. IV REMDESIVIR NOW INFUSING. PT ASSESSED AT THIS TIME AND THEN THE PT'S BREAKFAST WAS BROUGHT TO HIM. PT NOW RESTING IN BED, VAPOTHERM UNCHANGED AT 35L 75% FIO2, SPO2 90-92%. PT REPORTS NO FURTHER NEEDS AT THIS TIME, WILL CONTINUE PLAN OF CARE. CALL LIGHT IN REACH, BED IN LOWEST POSITION, WILL CONTINUE PLAN OF CARE.
--- NOTE | 2021-07-07 09:25 | NUR ---
RESPONDED TO PT CALL LIGHT, PT STATED HE NEEDED TO HAVE A BM. PT ABLE TO GET OVER TO THE BSC TO HAVE A BM AND NEEDED ASSISTANCE ONLY WITH CORD MANAGEMENT. VAPOTHERM FIO2 INCREASED TO 100% WHILE GETTING UP TO HAVE A BM. PT ABLE TO GET BACK INTO BED AFTER HAVING A BM AND VOIDING. PT TURNED BACK DOWN TO 75% FIO2 AFTER GETTING IN BED. PT FINISHED WITH HIS BREAKFAST AT THIS TIME, IV REMDESEVIR COMPLETED, PT SALINE LOCKED. PT REPORTS NO FURTHER NEEDS AND IS NOW LAYING ON HIS SIDE, FIO2 94%. WILL CONTINUE PLAN OF CARE. CALL LIGHT IN REACH, BED IN LOWEST POSITION.
--- NOTE | 2021-07-07 11:45 | NUR ---
THIS RN IN TO ASSESS PT AND TAKE VITLAS. PT LAYING IN BED AT THIS TIME ALERT AND ORIENTED, VAPOTHERM SETTINGS UNCHANGED. PT NEEDED TO VOID AT THIS TIME AND WAS ABLE TO VOID INTO A SAMPLE CUP FOR A UA AND THEN USE THE URINAL. URINE SAMPLE SENT TO LAB. PT REPORTS 2/10 GENERAL ACHES AND PAIN AND HIP PAIN, PRN TYLENOL ADMINISTERED AT THIS TIME. PT VITALS TAKEN, PT ASSESSED AND PT ABLE TO SIT UP IN BED TO EAT LUNCH. PT NOW SITTING UP IN BED A THIS TIME EATING LUNCH AND REPORTS NO FURTHER NEEDS WHEN ASKED, WILL CONTINUE PLAN OF CARE. CALL LIGHT IN REACH, BED IN LOWEST POSITION.
--- NOTE | 2021-07-07 13:50 | NUR ---
PT CHECKED ON AT THIS TIME. PT ON VAPOTHERM AT PREVIOUS SETTINGS SITTING UP IN BED. PT REPORTS NO NEEDS AT THIS TIME WHEN ASKED. PT NOTIFIED OF UPCOMING TRANFER TO THE MEDICAL SURGICAL FLOOR. WILL CONTINUE PLAN OF CARE. CALL LIGHT IN REACH, BED IN LOWEST POSITION.
--- NOTE | 2021-07-07 14:34 | NUR ---
PT ARRIVED TO THE FLOOR VIA BED. PT STATES THAT HE IS DOING WELL AND STATES NO COMPLAINTS OR CONCERNS.
--- NOTE | 2021-07-07 14:45 | NUR ---
THIS RN IN TO TRANSFER PT TO ROOM 115. RT NOTIFIED AT THIS TIME. PT ALERT AND ORIENTED ON THE VAPOTHERM AT PREVIOUS SETTINGS. PT BELONGINGS GATHERED BY THEA VERDUGO AND TAKEN TO ROOM 115. RT IN TO TRANSFER VAPOTHERM AND CPAP TO ROOM 115. PT TRANSFERRED VIA BED ON THE TELEMETRY UNIT AND ON 15L NONREBREATHER TO ROOM 115. PT MIRNA GARCIA ASSISSTED WITH TRANSFER. PT NOW IN ROOM 115, MIRNA GARCIA IN ROOM AT THIS TIME TO ASSUME PLAN OF CARE.
--- NOTE | 2021-07-07 17:50 | NUR ---
THIS RN IN PTS ROOM TO GET PTS VITALS. RN NOTED A TEMP OF 99.8- TYLENOL GIVEN. PT FULL PRONING AT THIS TIME AND APPEARS TO BE COMFORTABLE. PT REPORTS NOT HUNGRY YET AND NEEDS NOTHING FURTHER AT THIS TIME.
--- NOTE | 2021-07-07 20:30 | NUR ---
PT CALLED STATING THE IV IN HIS L AC WAS BLEEDING. UPON ENTERING ROOM IV WAS SL BUT HAD QUITE A BIT OF DRIED BLOOD UNDER THE OPSITE. HE STATES IT BLEEDS WHEN HE BENDS IT. IV IN R FOREARM FLUSHES FINE. DC'D L AC IV, CATH TIP IS INTACT AND PT TOLERATED WELL. GAUZE AND COBAN APPLIED. PT INSTRUCTED TO REMOVE COBAN AFTER 15 MINS. ASSISTED PT TO PRONE, O2 DROPPED TO 88% ON CPOX BUT RECOVERED TO LOW 90'S. PT DENIES FURTHER NEEDS. CALL LIGHT IS CLOSE.
--- NOTE | 2021-07-07 22:00 | NUR ---
AWAKE, ALERT AND ORIENTED. ON VAPOTHERM 35L, 75%. TELE/CPOX #9 SR SATS 98%, R20. LUNGS WITH CRACKLES AND DIM AT BASES, HIGH PITCH EXP WHEEZE LEFT LUNG. MOIST PRODUCTIVE COUGH PRESENT, DENIES NEED FOR COUGH SYRUP. SL X1 PATENT. VOIDING LIGHT MARVIN COLORED URINE. TOLERATING LIQUIDS WELL, ON 60GR CARB DIET, NO ACCUCHECK. NO EMESIS.
--- NOTE | 2021-07-07 22:35 | NUR ---
PT UP TO EDGE OF BED TO URINATE, , DESATTED TO 90%, THEN AFTER HE GOT BACK INT O BED, DESATTED TO 70'S%, PT DID PRONING, TELE RECHECKED, WENT BACK UP TO 90% PRONING POSITIONING BY SELF. ALSO HE DESATS WHEN HE TAKES OFF HIS O2 TO BLOW HIS NOSE.
--- NOTE | 2021-07-07 23:39 | NUR ---
PRONING POSITION TO ABD, ON HIGH FLOW O2, TELE/CPOX#9 98% 35L, 75%. CONT ON AIRBORNE ISOLATION. TURNS AND REPOSITIONS SELF
--- NOTE | 2021-07-08 01:52 | NUR ---
RESTING, ON VAPOTHERM, CPOX SATS 90%. TURNS AND REPOSITIONS SELF
--- NOTE | 2021-07-08 02:34 | NUR ---
PT TO EDGE OF BED TO URINATE. ON VAPOTHERM 35L,75%. DESATTED TO MID 70'S, BACK TO BED PRONING ON HIS STOMACH, SATS UP TO 92%. RECUPERATING MUCH FASTER THAN BEFORE. WARM BLANKET AND FRESH FLUIDS GIVEN. NO C/O PAIN. MOIST PRODUCTIVE COUGH OF WHITE-YELLOW PHLEGM PRESENT.
--- NOTE | 2021-07-08 04:46 | NUR ---
cough syrup and tessalon perles given per increased hacky moist productive cough, up to edge of bed to urinate, voidind dark yellow/light daria colored urine. qs. Desats when up, proning self after returning to bed,. tele/cpox #9 90%, encouraged to increase po fluid intake.
--- NOTE | 2021-07-08 06:51 | NUR ---
CONTINUES ON AIRBORNE ISOLATION PRECAUTIONS. ON VAPOTHERM 35L,075%. DESATS WHEN HE STANDS AT EDGE OF BED TO URINATE. PORNES HIMSELF WITH GOOD RESULTS, SATS MID 70'S TO 95%. LUNGS WITH INSP WHEEZE, RUB LIKE SOUND, CRACKLES AND DIM. THIS AM CRACKLES AND DIM AT BASES. HAS MOIST PRODUCTIVE COUGH WITH WHITE-YELLOW THICK PHLEGM. WAS MEDICATED WITH ROBITUSSIN COUGH SYRUP AND TESSALON PERLES, PARTIALLY EFFECTIVE. SL PATENT. VOIDING QS DARK YELLOW URINE, TOLERATING SIPS OF FLUIDS, NO EMESIS. TURNS AND REPOSITIONS SELF, ALERT AND ORIENTED.
--- NOTE | 2021-07-08 09:15 | NUR ---
PT SITTING UP IN BED, HAS FINISHED BREAKFAST. BREATHING APPEARS EVEN AND UNLABORED VAPO THERM IN PLACE SATS 90%. DR TORRES IN TO SEE PT, PLANS GOING FORWARD DISCUSSED PT DENIES FURTHER QUESTIONS. PT ENCOURAGED TO BREATH THROUGH HIS NOSE FOR BETTER OXYGENATION. NASAL SPRAY PROVIDED.
--- NOTE | 2021-07-08 10:24 | NUR ---
GAMEPLAY PROGRAMMER REPORTS LOW GRADE TEMP. TYLENOL GIVEN PRIOR. SATS DIPPING TO 87-88% PT INSTRUCTED TO USE I/S
--- NOTE | 2021-07-08 12:44 | NUR ---
pt sitting upright in bed his brings foods from home. sits at [facility] to visit with this pt for a short time. pt continues on high flow 02 sats 90% he is using the i/s at regular intervals
--- NOTE | 2021-07-08 16:32 | NUR ---
PT REMOVES 02 TO USE NASAL SPRAY AND CLEAR HIS NOSE SATS DROP IMMEDIATELY AND CONTINUE TO DROP UNTIL HE IS INSTRUCTED TO REPLACE 02. RECOVERS QUICKLY.
--- NOTE | 2021-07-08 18:36 | NUR ---
DR STOKES CALLS STATES PT IS TO HAVE CT THIS EVENING.
--- NOTE | 2021-07-08 19:15 | NUR ---
REPORT RECEIVED FROM MIRNA SOSA. pt OFF FLOOR FROM CT SCAN AT THIS TIME.
--- NOTE | 2021-07-08 19:36 | NUR ---
TEL CPOX READING 82. PT LAYING ON HIS BACK. ENCOURAGED, AND PT DID LAY ON HIS RIGHT SIDE, RECOVERY WAS OVER 2 MIN SATS TO 90.
--- NOTE | 2021-07-08 21:10 | NUR ---
pt RESTING IN BED AWAKE. IV SITE FLUSHED WNL AND ANTIBIOTIC INFUSING. ASSESSMENT COMPLETE. pt DENIES PAIN. C/O COUGH. PRN COUGH MEDICATION ADMINISTERED. VAPOTHERM 35L, 80% FIO2 ON. SPO2 WNL, CPOX TELE IN PLACE. ROOM TIDIED. ICE WATER PROVIDED. CALL LIGHT IN REACH.
--- NOTE | 2021-07-08 22:15 | NUR ---
CALL LIGHT ANSWERED. pt C/O PAIN AT IV SITE. IV SITE FLUSHED WNL BY MIRNA STEVENS. NO OBVIOUS SIGNS OF INFILATRATION. RATE SLOWED AND pt CONTINUES TO HAVE PAIN WITH INFUSION. IV SITE D/C'D WNL. ATTEMPT AT IV START BY THIS RN. AGRICULTURE MECHANIC NOTIFIED TO START IV. LIGHTS OFF IN ROOM CALL LIGHT IN REACH.
--- NOTE | 2021-07-08 23:17 | NUR ---
NEW IV STARTED BY WOOD CARVER HAND MIRNA WINTERS. pt TOLERATED WELL. IV ANTIBIOTIC INFUSING WNL. CALL LIGHT IN REACH.
--- NOTE | 2021-07-09 00:10 | NUR ---
pt RESTING IN BED. SPO2 92% WITH VAPOTHERM 35L, 80% FIO2 IN PLACE. LIGHTS OFF IN ROOM.
--- NOTE | 2021-07-09 00:51 | NUR ---
IV PUMP ALARMING, IV CEFEPIME INFUSING WNL. URINAL EMPTIED. WARM BLANKET PROVIDED. CALL LIGHT IN REACH.
--- NOTE | 2021-07-09 03:40 | NUR ---
SPO2 83-84% WHILE pt SLEEPING ON LEFT SIDE. pt ASSISTED TO PRONE POSITION. SPO2 INCREASES TO 96% WITH 10L NON-REBREATHER OVER VAPOTHERM. AFTER NON-REBREATHER REMOVED, SPO2 91% WITH VAPOTHERM 35L, 80% FIO2. URINAL EMPTIED. ASSESSMENT COMPLETE. pt STATES HE DID HAVE SHORTNESS OF BREATH WITH REPOSITIONING. LUNG SOUNDS CLEAR THROUGHOUT ALL LOBES. CALL LIGHT IN REACH. IV ANTIBIOTIC INFUSING ORDERED.
--- NOTE | 2021-07-09 06:05 | NUR ---
pt RESTING IN BED IN PRONE POSITION, AWAKENS TO VOICE. VSS. IV ANTIBIOTIC COMPLETE, IV SL WNL. pt IN SIDE LYING POSITION ON RIGHT SIDE. SPO2 INCREASES TO 93% WITH VAPOTHERM 35L, 80% FIO2. CALL LIGHT IN REACH.
--- NOTE | 2021-07-09 08:37 | NUR ---
PATIENT SITTING UP IN BED. TOOK PATIENTS BREAKFAST ORDER AND CALLED IT DOWN. EMPTIED URINAL. RECIEVED FRESH ICE WATER. PATIENT DOES NOT NEED ANYTHING AT THIS TIME. CALL LIGHT IN REACH.
--- NOTE | 2021-07-09 09:24 | NUR ---
ASSESSMENT COMPLETE. PATIENT RESTING ON LEFT SIDE, DOZING. RESPONDS TO COMMANDS AND DENIES PAIN OR NEEDS AT THIS TIME.
--- NOTE | 2021-07-09 10:18 | NUR ---
PATIENT RESTING IN BED USING IS. TOOK PATIENTS VITALS. DR STOKES CAME IN AND VISITED WITH PATIENT. TOOK LUNCH ORDER AND CALLED IT DOWN. HE DOES NOT NEED ANYTHING ELSE AT THIS TIME. CALL LIGHT IN REACH.
--- NOTE | 2021-07-09 11:03 | NUR ---
PT UP TO BSC WITH STANDBY ASSIST. TIRED AFTER EXERTION. PT POSITIONED TO RIGHT SIDE. TELE BATTERY CHANGED. PATIENT DENIES OTHER NEEDS AT THIS TIME.
--- NOTE | 2021-07-09 16:44 | NUR ---
PT STATES HE IS STARTING TO "FEEL SO MUCH BETTER" REPORTS GETTING SOME KIND OF MUCOUS PLUG OUT OF HIS NOSE WHICH HE STATES MAKES BREATHING MORE EFFECTIVE. PT STATES HE CAN BLOW HIS NOSE NOW WITHOUT DESATTING. SAYS HE DOESN'T HAVE TO USE THE REBREATHER JUST TO CLEAN HIS NOSE FOR A MOMENT, AND HE HAD TO PRIOR. PT LOOKS BETTER. STATES HIS APPETITE IS IMPROVED AND HE FEELS HE'S TURNING THE CORNER.
--- NOTE | 2021-07-09 19:10 | NUR ---
REPORT RECEIVED FROM MIRNA SOSA AND MIRNA MARQUIS. pt RESTIN N BED. VAPOTHERM 35L, 80% IN PLACE. SPO2 90% ON TELE CPOX. MIRNA SOSA IN ROOM TO pt.
--- NOTE | 2021-07-09 20:56 | NUR ---
VS COMPLETE. PT REQUESTED TO LAY ON HIS STOMACH ONCE HIS O2 WAS ELEVATED ABOVE 90. CURRENTLY SATS ARE 96 ON VAPOTHERME. ALL NEEDS ARE WITHIN REACH, YELLOW SOCKS IN PLACE PER PT REQUEST.
--- NOTE | 2021-07-09 21:30 | NUR ---
pt LYING IN PRONE POSITION. SPO2 WNL, EYES CLOSED, BREATHING UNLABORED. AWAKENS TO IV ANTIBIOTIC ADMINISTRATION. ASSESSMENT COMPLETE. pt COUGHING, REMOVING VAPOTHERM TO BLOW NOSE. SPO2 DROPS TO 68% ON RA. VAPOTHERM AND NON-REBREATHER MASK OVER TOP APPLIED TO INCREASE SPO2 TO NORMAL LIMITS. LUNG SOUNDS CLEAR THROUGHOUT ALL LOBES. pt BACK ON VAPOTHERM 35L, 80% FIO2. PRN PSEUDOPHEDRINE AND SLEEP MEDICATION ADMINISTERED. CALL LIGHT IN REACH.
--- NOTE | 2021-07-09 23:43 | NUR ---
pt RESTING IN BED SPO2 90% WITH VAPOTHERM ON. NO DISTRESS NOTED.
--- NOTE | 2021-07-10 01:30 | NUR ---
IN pt ROOM TO CHECK ON pt. ANTIBIOTIC INFUSING WNL. pt LYING ON RIGHT SIDE, ALMOST IN PRONE POSITION WITH BREATHING UNLABORED, SPO2 91%. NO DISTRESS NOTED.
--- NOTE | 2021-07-10 02:30 | NUR ---
CALL LIGHT ANSWERED. IV ANTIBIOTIC COMPLETE. IV SL WNL. pt ASSISTED TO REPOSITION TO PRONE POSITION. VAPOTHERM IN PLACE. NO ADDITIONAL NEEDS. CALL LIGHT IN REACH.
--- NOTE | 2021-07-10 04:34 | NUR ---
pt RESTING IN BED, SPO2 94% WITH VAPOTHERM 35L, 80% FIO2. LYING IN PRONE POSITION. NO DISTRESS NOTED.
--- NOTE | 2021-07-10 06:28 | NUR ---
pt RESTING IN BED AWAKE. VSS. SPO2 93% WITH VAPOTHERM 35L, 80%. ASSESSMENT COMPLETE, LUNG SOUNDS CLEAR THROUGHOUT ALL LOBES. OCCASIONAL PRODUCTIVE COUGH. SCHEDULED IV MEDICATION ADMINISTERED, IV SL WNL. LIGHTS OFF IN ROOM. CALL LIGHT IN REACH.
--- NOTE | 2021-07-10 07:35 | NUR ---
this rn received report from jessica castañeda. pt appears to be resitng at this time with cpox in place and sats wnl.
--- NOTE | 2021-07-10 08:30 | NUR ---
THIS RN IN PTS ROOM TO GIVE PT HIS MORNING MEDS AND DO MORNING ASSESSMENT. PT STATES THAT HE IS GOING GOOD. THIS RN NOTED PT USING NONREBREATHER MORE THIS AM. PT REPORTS THAT HIS SATS SEEM TO BE LOWER IN THE AM, ATTRIBUTES THIS TO MORE SPUTUM/ MUCOUS NOTED. THIS RN PROVIDED PT WITH 30MG OF PSUEDAFED TO HELP WITH SECREATIONS. PT REPORTS NO OTHER CONCERNS AT THIS TIME.
--- NOTE | 2021-07-10 12:30 | NUR ---
THIS RN IN PTS ROOM TO GET BLOOD SUGAR, PT TO REQUIRE 1 UNIT. THIS RN EDUCATED PT ABOUT HOW VANCOMYCIN IS MIXED AND HOW HE MAY REQIRE INSULIN WHILE ON IT. PT STATES UNDERSTANDING AND IS DOING WELL AND NEEDS NOTHING FURTHER AT THIS TIME
--- NOTE | 2021-07-10 13:09 | NUR ---
PATIENT'S APPETITE IS IMPROVING OVER THE LAST COUPLE OF DAYS. HE IS ON A 60 GM CONSISTENT CARB DIET. HE SEEMS TO LIKE OUR CAMACHO CUPS AND PEACHES. STILL HAVING SOB BUT IS ABLE TO EAT BETTER NOW. CONTINUE TO PROVIDE ENSURE IF LESS THAN 50% OF A MEAL IS CONSUMED. WILL CONTINUE TO MONITOR.
--- NOTE | 2021-07-10 14:10 | NUR ---
PATIENT IN BED TALKING WITH . VITALS AND I&O'S CHARTED. CALL LIGHT IN REACH. NO FURTHER NEEDS AT THIS TIME.
--- NOTE | 2021-07-10 15:20 | NUR ---
THIS RN IN PTS ROOM TO ACID BATH MIXER PTS ANTIBIOTICS. PT JUST FINISHED WITH BED BATH AND STATES THAT HE IS FEELIN GMUCH BETTER. PT ASKING APPROPRIATE QUESTIONS ABOUT CARE AND MEDS. PT STATES THAT HE NEEDS NOTHING FURTHER AFTER EDUCATION PROVIDED ABOUT MEDS.
--- NOTE | 2021-07-10 17:40 | NUR ---
THIS RN IN PTS ROOM TO ADD TO PTS ANTIBIOTS. PT STATES THAT HE IS DOING WELL. THIS RN DID MENTTION TO PT TO NOTIFY STAFF IF IV WENT BAD OR HURT DUE TO AROUNG THE CLOCK MEDS IN IT, PT STATED UNDERSTANGING
--- NOTE | 2021-07-10 18:00 | NUR ---
PT CALLED TO NOTIFY STAFF THAT HIS IV WAS BURNING. THIS RN TO INSPECT, RED AND SLIGHTLY INFLAMMED. PLACED WARM COMPACT AT SITE AND STOPPED IV INFUSION. NIECY RN IN TO START NEW IV.
--- NOTE | 2021-07-10 18:16 | NUR ---
PATIENT SITTING UP IN BED WORKING ON DINNER. VITALS AND I&O'S CHARTED. CALL LIGHT IN REACH. NO FURTHER NEEDS AT THIS TIME.
--- NOTE | 2021-07-10 19:20 | NUR ---
REPORT RECEIVED FROM MIRNA GARCIA. pt RESTING IN BED, SPO2 94% WITH VAPOTHERM. TELE CPOX ON.
--- NOTE | 2021-07-10 20:30 | NUR ---
IV SL WNL, IV ANTIBIOTIC COMPLETE. IV SITE IN LEFT ARM FLUSHED, PAINFUL WITH MINIMAL SL INFUSED. IV D/C'D WNL. VOID AND BM IN BSC. EMPTIED. CALL LIGHT IN REACH.
--- NOTE | 2021-07-10 22:45 | NUR ---
pt ASSESSMENT COMPLETE. LUNG SOUNDS CLEAR THROUGHOUT ALL LOBES. IV SITE FLUSHED WNL AND IV ANTIBIOTIC INFUSING ORDERED. SCHEDULED MEDICATIONS ADMINISTERED. PRN SLEEP, AND COUGH MEDICATION ADMINISTERED. ICE WATER PROVIDED. SPO2 91% WITH VAPOTHERM 35L, 80% FIO2 IN PLACE, pt IN SEMI FOWLERS POSITION, TURNING TO SIDE. CALL LIGHT IN REACH.
--- NOTE | 2021-07-11 | NUR ---
CALL LIGHT ASWERED. IV PUMP ALARMING, IV CEFEPIME INFUSING WNL. URINAL EMPTIED. CALL LIGHT IN REACH.
--- NOTE | 2021-07-11 02:04 | NUR ---
SPO2 93% WITH VAPOTHERM ON, CPOX ON TELE 9. LIGHTS OFF IN ROOM. pt RESTING IN BED.
--- NOTE | 2021-07-11 04:42 | NUR ---
pt RESTING IN BED ON RIGHT SIDE, IV LINE CHANGED TO TKO TO ALLOW pt TO REST, 15 ML/HR. SPO2 92% WITH VAPOTHERM ON.
--- NOTE | 2021-07-11 05:40 | NUR ---
pt AWAKE WHEN RN ENTERS ROOM. URINAL EMPTIED. ASSESSMENT COMPLETE. CRACKLES RLL ON AUSCULTATION. pt COUGHING. PRN COUGH AND CONGESTION MEDICATIONS ADMINISTERED. SCHEDULED MEDICATIONS ADMINISTERED, IV SITE FLUSHED WNL. IV ANTIBIOTIC INFUSING. CALL LIGHT IN REACH. VAPOTHERM IN PLACE.
--- NOTE | 2021-07-11 07:30 | NUR ---
this rn received report from jessica castañeda. pt up to edge of bed to pee, hr up to 125 and desated to 75% on vapotherm and nonbreather.
--- NOTE | 2021-07-11 08:28 | NUR ---
THIS RN IN PTS ROOM TO GIVE PT HIS MORNING EMDS. PT PRONING BUT TO SIT UP TO TAKE MEDS. PT HAD COUGHING FIT- DESATED TO 71% ON VAPOTHERM 35L AND 90%. PT PLACED NONREBREATHER OVER FACE TO RECOVER,
--- NOTE | 2021-07-11 09:45 | NUR ---
THIS RN IN PTS ROOM DUE TO PT DESTING ON THE MONITOR. PT STATES THAT HE FEELS OKAY AND NO SHORTNESS OF BREATH NOTED. THIS RN HAD PT GO ON NONREBREATHER, THIS RN HAD PT CHANGE FINGERS FOR THE PROBE AND TAKE OFF NONREBREATHER. PT SATING 91% ON VAPOTHERM WITHOUT NONREBREATHER.
--- NOTE | 2021-07-11 10:48 | NUR ---
Patient is currently on nasal canuula while laying down in bed. Call light is in reach.
--- NOTE | 2021-07-11 11:43 | NUR ---
THIS RN IN PTS ROOM TO GET PTS BLOOD SUGAR. PT IS DOING WELL BUT DOES SAY HE GETS ANXIOUS WHEN SOMEHTING CHANGES IN HIS CARE THAT IS NOT POSITIVE WITH HIM MATTIE GIL. OTHERWISE PT NEEDS NOTHING AT THIS TIME
--- NOTE | 2021-07-11 15:20 | NUR ---
THIS RN IN PTS ROOM TO START VANCO- DELAY DUE TO TROUGH. THIS RN DISCUSSED WITH PT ABOUT GETTING A PICC LINE. PT HAD MULTIPLE GOOD QUESTIONS ABOUT IT. THIS RN FLOR A PICTURE FOR PT, PT STATES UNDERSTANDING. THIS RN ALSO PROVIDED PT WITH 25MG OF VISTARIL PRN FOR ANXIETY THAT PT IS HAVING WHILE IN HOSPITAL. ALL QUESTIONS ANSWERED
--- NOTE | 2021-07-11 15:28 | NUR ---
Patient is resting on belly. Vitals, I&Os are complete.
--- NOTE | 2021-07-11 17:22 | NUR ---
THIS RN IN PTS ROOM TO GET PTS EVENING BLOOD SUGAR. 3 UNITS GIVEN. PT STATES NO FURTHER QUESTIONS ABOUT PICC LINES
--- NOTE | 2021-07-11 18:30 | NUR ---
THIS RN IN PTS ROOM TO START CEFEPIME. LATE DUE TO GAUGE OF IV AND VANCO DELAY. PT STATES THAT HE IS DOING WELL AND HAS NOTHING TO REPORT AT THIS TIME
--- NOTE | 2021-07-11 18:43 | NUR ---
Patient wanted to sleep before having dinner so patient has started eating now. Patient says they have no requests at this time. Call light is in reach.
--- NOTE | 2021-07-11 19:56 | NUR ---
PATIENT LAYING ON HIS LEFT SIDE. RESPIRATIONS ARE REGULAR AND EVEN, O2 SATS 92% WITH HR=86. PATIENT HAS NO CURRENT CARE NEEDS CALL LIGHT IS IN REACH.
--- NOTE | 2021-07-11 21:00 | NUR ---
PATIENT RESTING IN SEMI-FOWLERS POSITION, RESPIRATIONS SHALLOW, EYES CLOSED, CALL LIGHT IN REACH, NO CARE NEEDS AT THIS TIME.
--- NOTE | 2021-07-11 23:05 | NUR ---
PATIENT SITTING IN HIGH FOWLERS POSITION ON VAPOTHERM 35L/90% FOI2. IV FLUSHED AND IV ANTIBIOTICS ARE WNL. VS STABLE ON VAPOTHERM. 3UNITS INSUILIN SQ GIVEN FOR RBYI=123. PATIENT TOOK AMBIEN AND MELATONIN FOR SLEEP, VISTARIL FOR ANXIETY, TESSALON DAILY FOR COUGH, TYLENOL FOR WELSH, AND HAD SOME PSEDOPHED. ICE WATER REFILLED AND URINALS EMPTIED, NEW BATTERIES FOR FAN PLACED, AND PATIENT HAS NO OTHER CARE NEEDS AT THIS TIME. CALL LIGHT IS IN REACH.
--- NOTE | 2021-07-12 00:58 | NUR ---
PATIENT AT 90% ON HIS LEFT SIDE IN BED, RESTING QUIETLY, EYES CLOSED, VAPOTHERM SETTINGS REMAIN THE SAME, O2 SAT 90%. CALL LIGHT IN REACH, AND NO OTHER NEEDS NOTED AT THIS TIME.
--- NOTE | 2021-07-12 01:10 | NUR ---
PATIENT'S URINAL EMPTIED AND CHECKED ON PATIENT. HE INFORMED ME HE HAS SLEPT A LITTLE AND HAS NO OTHER NEEDS AT THIS TIME. CALL LIGHT IS IN REACH. O2 SATS=90%.
--- NOTE | 2021-07-12 02:43 | NUR ---
PATIENT AWAKE IN BED WORKING ON HIS CELL PHONE AND HAS NO CURRENT CARE NEEDS. O2 SATS=91% ON PREVIOUSLY CHARTED VAPOTHERM SETTINGS. CALL LIGHT IS IN REACH.
--- NOTE | 2021-07-12 04:35 | NUR ---
PATIENT'S VAPOTHERM BAG HAS BEEN CHANGED AND PATIENT'S URINAL HAS BEEN EMPTIED, AND CPOX BATTERY CHANGED. PATIENT HAS NO OTHER CARE NEEDS AT THIS TIME. CALL LIGHT IS IN REACH.
--- NOTE | 2021-07-12 05:40 | NUR ---
PATIENT RESTING QUIETLY ON HIS LEFT SIDE. VS ARE STABLE AND AM MEDS GIVEN WITH PRN'S FOR COUGH AND ANXIETY. PATIENT'S WATER REFILLED AND PATIENT HAS NO OTHER CARE NEEDS AT THIS TIME. CALL LIGHT IS IN REACH.
--- NOTE | 2021-07-12 06:09 | NUR ---
HAVE BEEN CHECKING ON PATIENT DAILY. PATIENT NOT READY FOR DISCHARGE. NO CHANGE IN GOING HOME WITH FAMILY AT THIS TIME. WILL CONTINUE TO MONITOR.
--- NOTE | 2021-07-12 08:00 | NUR ---
REPORT RECEIVED FROM NIGHT RN AND PT. CARE RESUMED. 02. SAT IS REMAINING 85-88%. R.T. STATES PT. REFUSED TO ALLOW HER TO TITRATE VAPOTHERM. PT. HAS NONREBREATHER MASK AT BEDSIDE ON 15L TO WHERE WITH EXERTION. PT. DENIES PAIN. LUNGS DIFFICULT TO ASSESS WITH VAPOTHERM ON. DISCUSSED POC, MIDLINE AND MEDS. PT. STATES HE HAS NOT PRONED SINCE YESTERDAY. AGREED TO PRONE AFTER BREAKFAST. PT. LEFT RESTING WITH CALL LIGHT IN REACH.
--- NOTE | 2021-07-12 10:00 | NUR ---
PT. 02 SAT. REMAINING 85-88% AT REST. VAPOTHERM FIO2 INCREASED TO 100% WHILE EATING. LEFT RESTING WITH CALL LIGHT IN REACH.
--- NOTE | 2021-07-12 10:45 | NUR ---
MIDLINE INSERTION NOTE DISCUSSED PROCEDURE WITH PT. PT AGREEABLE AND IS HAPPY TO BE GETTING A MIDLINE HE HAS HAD MULTIPLE IV'S. WAS ASKED TO PLACE A LINE THE PT IS A DIFFICULT IV START AND HAS IV ABX. THE PT'S LEFT ARM WAS EXAMINED. THE BASILIC VEIN WAS CHOSEN THE BRACHIAL VEIN WAS CLOSE TO THE BRACHIAL ARTERY. THE BASILIC VEIN WAS APROXIMATELY 1 CM BELOW THE SURFACE AND WAS LARGER THAN 7 FR.
--- NOTE | 2021-07-12 11:30 | NUR ---
PT. IS HERE FOR A VISIT AND PROVIDED PPE. ASSISTED WITH BEDBATH. PT. AGREES TO PRONE AFTER LUNCH.
--- NOTE | 2021-07-12 11:33 | NUR ---
ROUNDING ON PT. HE AGREES TO PRONE NOW AND REFUSED ASSISTANCE WITH REPOSITIONING. STATES HE IS NOT ANXIOUS AT THIS TIME. HR 103-115. WILL CONTINUE TO MONITOR.
--- NOTE | 2021-07-12 15:04 | NUR ---
Patient was busy earlier with some RNs doing patient care. Vitals and I&Os are done now.
--- NOTE | 2021-07-12 17:00 | NUR ---
PT. APPEARS ANXIOUS. DISCUSSED CONCERNS AND ANSWERED QUESTIONS ABOUT POC. DISCUSSED PRONING, MEDICATIONS, AND OXYGEN. PT. LEFT PRONING WITH CALL LIGHT IN REACH.
--- NOTE | 2021-07-12 18:30 | NUR ---
Patient has dinner but is going to use the urnal first. Vitals, I&Os done.
--- NOTE | 2021-07-12 19:00 | NUR ---
SHIFT REPORT RECEIVED FROM SANDRA BRADLEY. PT SPO2 93% ON VAPOTHERM 40L/100%. CALL LIGHT IN REACH.
--- NOTE | 2021-07-12 20:50 | NUR ---
IN TO GET VITALS, I&Os, TRASH EMPTIED, RN AWARE OF PTs TEMP, I.S. AT BEDSIDE FOR PT USE, ICE WATER FILLED, NO FURTHER NEEDS AT THIS TIME
--- NOTE | 2021-07-12 23:26 | NUR ---
ASSESSMENT COMPLETED. GCS 15, A&O X4. LUNGS CLEAR IN UPPER LOBES AND DIM IN LOWER LOBES. R FA IV PAINFUL, DCd WNL. CENTRAL LINE FLUSHED, GOOD BLOOD RETURN. PT HAS BEEN PRONE FOR SEVERAL HOURS. PT USES NONREBREATHER WITH VAPOTHERM 40L/100% BEFORE MEDS AND WITH ANY MOVEMENT. SPO2 91% ON VAPOTHERM 40L/100%. CMS INTACT. NO OTHER NEEDS. CALL LIGHT IN REACH.
--- NOTE | 2021-07-13 00:06 | NUR ---
PT RESTING IN BED, VAPOTHERM 40L/100%, SPO2 92%. CALL LIGHT IN REACH.
--- NOTE | 2021-07-13 01:00 | NUR ---
SCHEDULED MED PROVIDED. SPO2 93% ON VAPOTHERM 40/100% CALL LIGHT IN REACH.
--- NOTE | 2021-07-13 03:04 | NUR ---
PT RESTING IN BED, SPO2 97% ON VAPOTHERM 40L/100%. CALL LIGHT IN REACH.
--- NOTE | 2021-07-13 04:20 | NUR ---
IN TO GET VITALS, I&Os, URINAL EMPTIED, FRESH ICE WATER REPLACED, NO FURTHER NEEDS
--- NOTE | 2021-07-13 04:56 | NUR ---
LABS DRAWN AND SENT. VS AND I&O COMPLETED. ICE WATER PROVIDED. CALL LIGHT IN REACH.
--- NOTE | 2021-07-13 05:32 | NUR ---
SCHEDULED MEDS PROVIDED. SPO2 96% WHILE PRONE ON 40L/100% VAPOTHERM. NO OTHER NEEDS. CALL LIGHT IN REACH.
--- NOTE | 2021-07-13 08:15 | NUR ---
REPORT RECEIVED FROM NIGHT RN AND PT. CARE RESUMED. PT. HAS A PRODUCTIVE, HACKING COUGH. WHEN HE COUGHS HIS 02 SAT DROPS TO 70S. ADMIN. JAYME. PT. IS TAKING SEVERAL MINUTES TO RECOVER. HR 110S-130S. LUNGS DIM. IN BASES. VAPOTHERM IN USE AT 40L, 100% FIO2 WITH NONREBREATHER 15L. MIDLINE FLUSHES WELL AND DRESSING INTACT. PT. ASSISTED TO PRONING POSITION WITH CALL LIGHT IN REACH.
--- NOTE | 2021-07-13 14:57 | NUR ---
PATIENT UP TO THE BESIDE COMMODE TO HAVE A BM. HR 140S-150S AND 02 SAT. IS 70S. PT ASSISTED BACK TO BED AND PLACE IN PRONING POSITION WITH CPAP. 02 SAT IS 98% AND HR 112. WILL CONTINUE TO MONITOR.
--- NOTE | 2021-07-13 15:09 | NUR ---
Patient is resting on belly and has a resperations of 36. Vitals, I&Os are complete.
--- NOTE | 2021-07-13 15:35 | NUR ---
NO NEW UPDATES. NOT CHANGE IN DISCHARGE PLAN.
--- NOTE | 2021-07-13 15:47 | NUR ---
PT. HR 120S SUSTAINED. CHECKED ON PT. AND HE IS PRONING WITH CPAP IN PLACE. RR IS 36. PT ASSISTED TO BACK. HR IS 112 AND O2 SAT IS 100%. WILL CONTINUE TO MONITOR.
--- NOTE | 2021-07-13 16:19 | NUR ---
UPDATED ON PT. HR AND RR.
--- NOTE | 2021-07-13 17:50 | NUR ---
Patient recieved dinner and has already eaten 25% of it, but is taking breaks periodically to wear oxygen and blow his nose. Vitals, I&Os are done. Patient has heart burn and RN was notified.
--- NOTE | 2021-07-13 18:34 | NUR ---
MONITOR SHOWS PT. DESAT 02 68%. CHECKED ON PT. AND HE IS LYING IN BED USING THE URINAL. PT. VOIDED AND THEN PLACED BACK ON CPAP. 02 SAT. 99%, HR 106 AND RR 40. WILL CONTINUE TO MONITOR.
--- NOTE | 2021-07-13 19:41 | NUR ---
SHIFT REPORT RECEIVED FROM SANDRA BRADLYE. PT RESTING IN BED. SPO2 98% ON CPAP12/100. PULSE96. CALL LIGHT IN REACH.
--- NOTE | 2021-07-13 21:50 | NUR ---
ASSESSMENT, VS AND I&O COMPLETED. PT SPO2 DROPS TO 69% WHILE ATTEMPTING VS. MD WITNESSED AND GAVE VERBAL ORDER FOR ROSALES CATHETER, PROVIDED. GCS 15, A&O X4. LUNGS CLEAR IN UPPER LOBES AND DIM IN LOWER LOBES. ABD SOFT, NONTENDER, BOWEL TONES ACTIVE. CMS INTACT. SPO2 RETURNS TO LOW 90s WITH CPAP ON 12/100% FOR SEVERAL MINUTES. MIDLINE WNL, FLUSHED WELL, NO BLOOD RETURN. SCHEDULED AND PRN MEDS PROVIDED. PT ARRIVES, QUESTIONS ANSWERED. ICE WATER PROVIDED. NO OTHER NEEDS AT THIS TIME. CALL LIGHT IN REACH.
--- NOTE | 2021-07-13 21:50 | NUR ---
MD ON FLOOR AND NOTED SPO2 DECREASE WHILE TAKING VS. MD GAVE VERBAL ORDER FOR A ROSALES TO BE PLACED. ROSALES PLACED WITHOUT DIFFICULTY OR RESISTANCE. PT TOLERATED WELL.
--- NOTE | 2021-07-13 22:49 | NUR ---
in to provide warm blankets, no further needs at this time
--- NOTE | 2021-07-14 | NUR ---
PT RESTING IN BED, EYES CLOSED. SPO2 100% ON CPAP 12/100% SETTINGS CHANGED TO 12/90% BY NICHOLE BRADLEY. SPO2 STAYS AT 98% PT LAYING ON SIDE. CALL LIGHT IN REACH.
--- NOTE | 2021-07-14 03:57 | NUR ---
PT RESTING IN BED, ON CPAP. CPAP 12/100%, PT TOLERATING WELL. SPO2 97%. CALL LIGHT IN REACH.
--- NOTE | 2021-07-14 05:39 | NUR ---
PT HR UP TO 155, RN IN ROOM AND PT STATES THAT THE CPAP HOSE CAME OFF. RN WAITS UNTIL SPO2 RETURNS TO 90s THEN PROVIDES PRN ANXIETY MEDS AND COUGH MEDS WITH PT ON VAPOTHERM 40/100 AND NRB OFF AND ON BETWEEN DRINKS. ASSESSMENT COMPLETED. GCS 15, A&O X4. LUNGS CLEAR IN UPPER LOBES AND FINE CRACKLES IN LOWER LOBES. HR COMES DOWN TO 110 DURING ASSESSMENT. ROSALES WNL. MIDLINE WNL, 32CM. NO OTHER NEEDS AT THIS TIME. CALL LIGHT IN REACH.
--- NOTE | 2021-07-14 06:44 | NUR ---
PT RESTING IN BED. HR 135 AT REST. ONLINE MERCHANDISING COORDINATOR IN TO GET VITALS. SPO2 97%. CALL LIGHT IN REACH.
--- NOTE | 2021-07-14 06:50 | NUR ---
IN TO RECHECK VITALS, REPORTED TO RN, PT NO FURTHER NEEDS
--- NOTE | 2021-07-14 06:59 | NUR ---
NOTIFIED MD OF ELEVATED TEMP AND PULSE. VERBAL ORDERS GIVEN TO WATCH HIS PULSE AND TEMP AFTER PRN TYLENOL IS PROVIDED. MD WILL REVIEW PT INFORMATION AT THIS TIME AND COMPLETE ORDERS NEEDED.
--- NOTE | 2021-07-14 07:28 | NUR ---
IN TO GIVE TYLENOL PER PRIMARY RN REQUEST. pt FOUND FLAT ON BACK ON CPAP. SAT UP, pt ON VAPOTHERM 40L/100% AND NON REBREATHER TO TAKE TYLENOL. HR 130 - 160'S. LEADS REPLACED FOR TELEMETRY, APICAL PULSE MATCHES TELEMETRY. pt VERY ANXIOUS ABOUT O2, CONTINUALLY CHECKS TELE BOX FOR O2 SAT. pt IS ABLE TO TURN ON THE BOX. pt REQUESTED TO LAY FLAT AGAIN, DISCUSSED PRONING PROTOCOL. pt AGREED TO LAY ON RIGHT SIDE. ON CPAP. PRIMARY RNS UPDATED. CALL LIGHT WITHIN REACH.
--- NOTE | 2021-07-14 08:00 | NUR ---
MONITOR SHOWS PT. HR SUSTAINED 120-140S. PT. IS LYING ON SIDE WITH CPAP IN PLACE. RR IS 42. PT. DENIES PAIN OR COUGH. CRACKLES AUSCULTATED IN LUNG BASES BILAT. MIDLINE FLUSHES WELL, BUT DOES NOT RETURN BLOOD. PT. IS ANXIOUS AND HAS LOTS OF QUESTIONS ABOUT POC. ASSISTED WITH REPOSITIONING AND LEFT RESTING WITH CALL LIGHT IN REACH.
--- NOTE | 2021-07-14 09:30 | NUR ---
PT. UPDATED ON POC TO TRANSFER TO CCU, ABX AND CT. PT. STATES HIS IS ON HER WAY. ABX AND FLUIDS STARTED.
--- NOTE | 2021-07-14 11:00 | NUR ---
REPORT GIVEN TO CCU RN. PT. BELONGINGS MOVED TO UNIT. PT. TAKEN WITH RT AND CCU RNS FOR C.T.
--- NOTE | 2021-07-14 11:00 | NUR ---
PATIENT REPORT RECIEVED FROM MIRNA FLORES. PATIENT WILL BE TRANSPORTED FOR A CT SCAN BEFORE COMING TO THE CCU UNIT. PATIENT IS ON CPAP PRESSURE 12 AND 60 FIO2. OXYGEN SATURATION IS 94%. BREATHING IS NON LABORED AND EQUAL.
--- NOTE | 2021-07-14 11:52 | NUR ---
PATIENT ASSESSMENT COMPLETE. PATIENT IS ALERT AND ORIENT x4. PATIENT LUNG SOUNDS ARE DIMINSHED IN THE UPPER LOBES AND CRACKLES IN THE LOWER LOBES. OXYGEN SATURATION IS 92% ON CPAP AT PRESSURE OF 12 AND 60% FIO2. RR IS 35. PATIENT HEART RATE 130 SINUS TACHY. PATIENT URINE OUTPUT IS YELLOW AND CLEAR. NO BM TODAY. PATIENT UPDATED ON PLAN OF CARE. NO QUESTIONS AT THIS TIME. IS PRESENT. CALL LIGHT WITHIN REACH NO FUTHER NEED.
--- NOTE | 2021-07-14 15:29 | NUR ---
PATIENT REPOSITIONED IN BED. PATIENT OXYGEN SATURATION IS 93% ON CPAP PRESSURES OF 12 AND 60% FIO2. DENIES FEELING SHORT OF BREATH. RR IS 27. HEART RATE IS 130 BPM. CALL LIGHT WITHIN REACH NO FUTHER NEEDS.
--- NOTE | 2021-07-14 16:05 | NUR ---
PATIENT ASSESSMENT COMPLETE. MEDICATION GIVEN ORDERED. PATIENT LUNG SOUNDS ARE CLEAR IN THE UPPER LOBES AND CRACKLES IN THE LOWER LOBES. OXYGEN SATURATION IS 92% ON CPAP. CPAP AT 12 PRESSURE AND 60% FIO2. RR IS 43. PATIENT HR IS 112 AND IS IN SINUS TACH. PATIENT DENIES FEELING PAIN OR SHORTNESS OF BREATH. PATIENT HAS BEEN REPOSITIONING HIMSELF. PATIENT EDUCATED ON IMPORTANCE OF PRONING. URINE OUTPUT IS AN MARVIN COLOR. NO BM TODAY. PATIENT IS ANXIOUS AND ASKING ALOT OF QUESTIONS ABOUT CARES BEING DONE. UPDATED ON PLAN OF CARE. AT BEDSIDE. CALL LIGHT WITHIN REACH NO FUTHER NEEDS.
--- NOTE | 2021-07-14 16:55 | NUR ---
COUGH MEDICATION GIVEN. TURNED TO LEFT SIDE. O2 SAT DOWN TO 82. FIO2 INCREASED TO 75 ON CPAP.
--- NOTE | 2021-07-14 17:04 | NUR ---
O2 DECREASD TO 65.
--- NOTE | 2021-07-14 19:30 | NUR ---
shift report received. patient resting with cpap in place. tolerating well. in room.
--- NOTE | 2021-07-14 20:13 | NUR ---
of pt was clearly upset as [facility]. She accepted offer of conversation, and we sat and talked of her concerns and fears. I primarily exercised ministry of presence. expressed appreciation of nurses and care her is receiving. She is fearful because her has been ill so long. We prayed together and she appeared more balanced afterwards and continued on her way.
--- NOTE | 2021-07-14 21:00 | NUR ---
PATIENT PROVIDED WITH EVENING MEDS. PATIENT TOLERATING CPAP AT 60%, RR 35-40'S. PATIENT ENCOURAGED TO BREATH MORE DEEPLY. VS STABLE. AXILLARY TEMP 100.4F. PRN TYLENOL PROVIDED FOR GENERAL ACHES AND PAINS PLUS TEMP. LUNG SOUNDS ARE CLEAR IN UPPERS, VERY DIMINSIHED IN THE MID AND LOWERS. ROSALES DRAINING FREELY, MARVIN COLORED URINE. MIDLINE FLUSHED EASILY, SL. PATIENT WOULD LIKE TO WAIT UNTIL 2200 FOR HIS SLEEPING AND COUGH MEDS. CALL LIGHT IN REACH. PATIENT RESTING ON HIS LEFT SIDE.
--- NOTE | 2021-07-14 22:20 | NUR ---
patient provided with prn cough and sleep meds per request. iv abx started in midline on right upper arm. patient turned to right side. tolerating cpap at 70% Fi02. quintero emptied. call light in reach.
--- NOTE | 2021-07-14 23:13 | NUR ---
PATIENT REMOVED CPAP FOR DRINK OF WATER. O2 SATS 80% ON ROOM AIR. PATIENT DROWSY AND HAVING DIFFICULTY GETTING MASK BACK IN PLACE. THIS RN ASSISTED. PATIENT THEN TURNED BACK TO HIS SIDE AND GAVE THE THUMBS UP MOTION TO INDICATE HE WAS OKAY. CALL LIGHT IN REACH.
--- NOTE | 2021-07-15 02:45 | NUR ---
ASSISTED PATIENT IN REPOSITIONING HIS CPAP MASK. PATIENT TOLERATING CPAP AT 70% Fi02. HR 90'S. NO NEEDS AT THIS TIME. CALL LIGHT IN REACH .
--- NOTE | 2021-07-15 06:00 | NUR ---
ABX STARTED PER ORDER. PATIENT WAKES TO LOOK AT STAFF BUT DENIES NEEDS. TOLERATING CPAP AT 70% Fi02. RR 20'S. PATIENT APPEARS RESTFUL. ROSALES EMPTIED. CALL LIGHT IN REACH.
--- NOTE | 2021-07-15 07:45 | NUR ---
REPORT RECIEVED FROM MIRNA MARTINEZ. PATIENT IS RESTING IN BED. BREATHING EQUAL AND UNLABORED. CALL LIGHT WITHIN REACH NO FUTHER NEEDS
--- NOTE | 2021-07-15 08:15 | NUR ---
PATIENT ASSESSMENT COMPELTE. MEDICATIONS GIVEN ORDERED. PATIENT IS ALERT AND ORIENTED X4. LUNG SOUNDS ARE CLEAR IN THE UPPER LOBES AND DIMINSHED IN THE BASES. CPAP PRESSURE IS AT 12 AND FIO2 70%. RR IS 30. PATIENT OXYGEN SATURATION IS 96. HEART SOUNDS ARE WNL AND HEART RATE IS 98 BPM IS IN SINUS RHYTHM. URINE OUTPUT IS MARVIN IN COLOR. PATIENT HAS NOT HAD A BM. PATIENT UPDATED ON PLAN OF CARE. CALL LIGHT WITHIN REACH NO FUTHER NEEDS.
--- NOTE | 2021-07-15 09:30 | NUR ---
PATIENT PLACED ON VAPOTHERM FOR BREAKFAST 40 LPM AND 100 FIO2. PATIENT BREATHING IS EQUAL AND UNLABORED. OXYGEN SATURATION IS 94% AND RR IS 25. NRB IS AT BEDSIDE 15 LITERS. CALL LIGHT WITHIN REACH NO FUTHER NEEDS.
--- NOTE | 2021-07-15 12:01 | NUR ---
PATIENT ASSESSMENT COMPLETE. MEDICATIONS GIVEN ORDERED. PATIENT IS ALERT AND ORIENTED X4. LUNG SOUNDS ARE CLEAR IN THE UPPER LOBES AND DIMINISHED IN THE BASES. PATIENT IS ON CPAP PRESSURE 12 AND FIO2 OF 70%. RR IS 30. PATIENT BREATHING IS EQUAL AND UNLABORED. HEART RATE IS 96 AND PATIENT IS IN A SINUS RHYTHM. URINE IS MARVIN COLOR. PATIENT HAS NOT HAD A BM AND BOWEL SOUNDS ARE ACTIVE. PATIENT UPDATED ON PLAN OF CARE. NO QUESTIONS. CALL LIGHT WITHIN REACH NO FUTHER NEEDS.
--- NOTE | 2021-07-15 14:29 | NUR ---
PATIENT MEDICATION GIVEN ORDERED. LINENS CHANGED AND BED BATH COMPLETE. PATIENT HAD A BM. PATIENT IS ON CPAP 70% FI02 AND PRESSURE OF 12. OXYGEN SATURATIONS STAYED BETWEEN 90-94%. HEART RATE IS 112 BPM. CALL LIGHT WITHIN REACH NO FUTHER NEEDS.
--- NOTE | 2021-07-15 16:35 | NUR ---
PATIENT ASSESSMENT COMPLETE. PATIENT IS ALERT AND ORIENTED X4. PATIENT IS ON CPAP PRESSURE 12 AND FI02 70%. LUNG SOUNDS ARE CLEAR IN THE UPPER LOBES AND DIMINISHED IN THE BASES. OXYGEN SATURATIONS HAVE BEEN 90-94%. RR IS 30. DENIES FEELING SHORTNESS OF BREATH. HEART RATE IS 110 BPM. SINUS RHYTHM 70 BPM. URINE OUTPUT IS MARVIN. BM TODAY AND BOWEL SOUNDS ARE ACTIVE. PATIENT UPDATED ON PLAN OF CARE. NO QUESTIONS AT THIS TIME. AT BEDSIDE. CALL LIGHT WITHIN REACH NO FUTHER NEEDS.
--- NOTE | 2021-07-15 19:30 | NUR ---
PATIENT IN PRONE POSITION WITH VAPOTHERM 40L 100% Fi02 IN PLACE. RR 33. O2 SATS 92%. CALL LIGHT IN REACH.
--- NOTE | 2021-07-15 20:45 | NUR ---
PATIENT UP TO THE BEDSIDE TO TAKE PO MEDS AND EAT. PATIENT PROVIDED WITH CLEAR ENSURE, FRUIT, SANDWICH AND YOGURT. ENCOURAGED PATIENT TO FOCUS ON HIS NUTRITION. PATIENT IS ANXIOUS ABOUT HIS O2 SATS AND HR. ASSURED PATIENT THIS RN WOULD WATCH BOTH CLOSELY FOR HIM. PATIENT HAS VPOTHERM 40L 100% Fi02 AND NON-REBREATHER IN PLACE, MOVING MASK FRO BITES AND SIPS. PATIENT ALSO HAS BEEN COUGHING UP LARGE AMOUNTS OF THICK CLEAR SPUTUM. LUNG SOUNDS ARE CLEAR THROUGHOUT.
--- NOTE | 2021-07-15 21:15 | NUR ---
PATIENT'S HR ELEVATED TO THE 140'S WHILE SITTING AT THE EDGE OF THE BED EATTING. PATIENT AT ABOUT 25% OF THE FOOD PROVIDED. PRN MEDS FOR COUGH, PAIN AND SLEEP PROVIDED. PATIENT USED NASAL SPRAY AND BLEW HIS NOSE SEVERAL TIMES. ASSISTED PATIENT TO POSTIION IN THE BED ON HIS RIGHT SIDE. CPAP IN PLACE. TOLERATED WELL. HR BEGAN TO IMPROVE WITH CPAP IN PLACE AND PATIENT RESTING. IV ABX STARTED PER ORDER. PATIENT HAS CALL LIGHT IN REACH.
--- NOTE | 2021-07-15 22:30 | NUR ---
patient laying to his right side. cpap in place, tolerating 70% Fi02. call light in reach.
--- NOTE | 2021-07-16 00:59 | NUR ---
PATIENT IN PRONE POSITION. MASK READJUSTED TO FIT WELL. PATIENT RR 30'S. O2 SATS IN MID TO LOW 80S. TITRATED TO80% Fi02 ON CPAP FROM 70%. PATIENT REQUESTING A FAN WHICH WAS PROVIDED. CALL [facility] IN [place]ACH.
--- NOTE | 2021-07-16 03:15 | NUR ---
PATIENT REPOSITIONED TO HIS LEFT SIDE. TOLERATING CPAP WITH O2 SATS >95% ON 80% Fi02. TITRATED TO 70% Fi02.
--- NOTE | 2021-07-16 06:15 | NUR ---
IV ABX STARTED. ROSALES EMPTIED. VS DONE, STABLE. PATIENT TOOELRATING CPAP 70% Fi02. RR 20'S WHILE SLEEPING. PATIENT WOKE EASILY TO TOUCH AND VOICE. PATIENT RR INCREASED TO 35-40. ASSISTED PATIENT TO REMOVE MASK FOR DRINK AND REPLACE MASK. PATIENT DENIED ANY CONCERNS. REPORTS FEELING HE SLEPT OKAY LAST NIGHT. NO NEEDS AT THIS TIME. CALL LIGHT IN REACH.
--- NOTE | 2021-07-16 07:37 | NUR ---
REPORT RECEIVED FROM NIGHTSHIFT RN, WILL CONTINUE PLAN OF CARE.
--- NOTE | 2021-07-16 09:00 | NUR ---
THIS RN IN TO ASSESS PT AND ADMINISTER SCHEDULED MEDICATIONS. PT ALERT AND ORIENTED X4 ON THE CPAP AT 12 AND 70%. PT REPORTS CONGESTION, GENERALIZED ACHES, AND A COUGH, PRN COUGH, CONGESTION, AND PAIN MEDICATION ADMINISTERED ALONG WITH SCHEDULED MEDICATIONS (SEE MAR). MIDLINE FLUSHES EASILY AND SITE IS C/D/I, SCHEDULED IV ANTIBIOTICS BOTH INFUSING AT ORDERED RATE. PT PUT ON VAPOTHERM AT 40LPM AND 100% FIO2 ALONG WITH 15+L NONREBREATHER MASK TO MAINTAIN SPO2 WHILE TAKING PO MEDICATIONS. PT ASSESSED AFTER TAKING MEDICATIONS. DR. LOVE IN AFTERWARDS TO ASSESS PT AND UPDATE ON PLAN OF CARE. PT NOW EATING BREAKFAST WHILE SITTING UP IN BED ON THE VAPOTHERM AND NRB MASK, SPO2 MAINTAINING 95%. PT REPORTS NO FURTHER NEEDS AT THIS TIME, WILL CONTINUE PLAN OF CARE. CALL LIGHT IN REACH, BED IN LOWEST POSITION, IV ANTIBIOTICS INFUSING, ROSALES DRAINING.
--- NOTE | 2021-07-16 09:50 | NUR ---
RESPONDED TO PT CALL LIGHT, PT STATED HE WOULD LIKE A STAT LOCK FOR HIS ROSALES CATHTER. MIRNA FREY IN TO ASSIST PT IN PLACING STAT LOCK. PT THEN ASSISTED INTO THE PRONE POSITION BY MIRNA FREY. PT REPORTS NO FURTHER NEEDS AT THIS TIME, WILL CONTINUE PLAN OF CARE. CALL LIGHT IN REACH, BED IN LOWEST POSITION.
--- NOTE | 2021-07-16 11:10 | NUR ---
RESPONDED TO PT CALL LIGHT, PT STATED HIS IV WAS BEEPING. THIS RN IN TO ASSESS IV. IV ABX HAD FINISHED INFUSING, AT THIS TIME, PT SALINE LOCKED. PT REPORTS NO FURTHER NEEDS AT THIS TIME AND IS NOW RESTING ON HIS LEFT SIDE ON THE VAPOTHERM AND NONREBREATHER. WILL CONTINUE PLAN OF CARE. CALL LIGHT IN REACH, BED IN LOWEST POSITION.
--- NOTE | 2021-07-16 12:00 | NUR ---
PT LAYING IN BED ON THE VAPOTHERM AND NONREBREATHER. PT AWAKE AND ALERT AT THIS TIME, PT'S IN ROOM AT THE BEDSIDE. PT'S MOTHER AND FATHER OUTSIDE THE DOOR OF THE ROOM TO SEE THE PT AND SPEAK WITH HIM AT THIS TIME FROM OUTSIDE THE DOOR. NO NEEDS ASSESSED AT THIS TIME, WILL CONTINUE PLAN OF CARE. CALL LIGHT IN REACH, BED IN LOWEST POSITION.
--- NOTE | 2021-07-16 13:35 | NUR ---
THIS RN IN TO ASSESS PT AND TAKE VITALS. PT LAYING IN BED AT THIS TIME ON THE VAPOTHERM, NONREBREATHER NO LONGER ON AND AT THE BEDSIDE, PT SPO2 92-94%. PT ALERT AND ORIENTED AT THIS TIME, AT THE BEDSIDE. VITALS TAKEN, PT ASSESSED. PT REPORTS HAVING LOWER BACK PAIN ALONG AND REQUESTED PRN OXYCODONE. PT ALSO REQUESTED PRN COUGH MEDICATION, AND A DECONGESTANT. PT REPORTS NO ADDITIONAL NEEDS AT THIS TIME, WILL CONTINUE PLAN OF CARE AND ADMINISTER SCHEDULED AND PRN MEDICATIONS. CALL LIGHT IN REACH, BED IN LOWEST POSITION, PT ON THE VAPOTHERM, SPO2 93%, PT'S IN THE ROOM AT THIS TIME.
--- NOTE | 2021-07-16 13:43 | NUR ---
DR. LOVE CALLED AND UPDATED ON PT AND ASSESSMENT FINDINGS REGARDING CRACKLES IN LOWER BASES OF THE LUNGS. ORDERS GIVEN TO ADMINISTER ONLY 500ML OF LR RATHER THAN THE PREVIOUSLY ORDERED 1 LITER. WILL CONTINUE PLAN OF CARE.
--- NOTE | 2021-07-16 14:27 | NUR ---
THIS RN IN TO ADMINISTER SCHEDULED MEDICATIONS ALONG THE [facility] PRN MEDICATIONS. PT ALERT AND ORIENTED LAYING ON HIS SIDE ON THE VAPOTHERM AT PREVIOUS SETTINGS, SPO2 90-92%. IN ROOM WITH PT AT THIS TIME. SCHEDULED IV ABX AND IVF STARTED AND NOW INFUSING, PRN OXYCODONE ADMINISTERED (SEE MAR) FOR LOWER BACK PAIN. PT PROVIDED WITH WATER AT THIS TIME. AFTER ADMINISTERING MEDICATIONS PT WAS PROVIDED WITH A WARM BLANKET PER HIS REQUEST. AN ORAL TEMPERATURE WAS TAKEN PT STATED HE WAS FEELING COLD, TEMPERATURE OF 99.9 WAS OBTAINED. PRN TYLENOL ALONG WITH PRN SUDAFED ADMINISTERED FOR ELEVATED TEMPERATURE AND CONGESTION. PT NOW RESTING IN BED, VAPOTHERM IN PLACE, PT REPORTS NO FURTHER NEEDS AT THIS TIME AND IS BACK TO HIS RIGHT SIDE, SPO2 92%. WILL CONTINUE PLAN OF CARE. CALL LIGHT IN REACH, BED IN LOWEST POSITION, PT'S IN ROOM, ROSALES DRAINING, IV ABX AND IVF INFUSING ORDERED.
--- NOTE | 2021-07-16 14:51 | NUR ---
PT REQUESTED VISIT FROM BY PHONE AND TO CHANGE [facility]ST[facility] PREFERENCE TO [facility]KH[facility]. MADE CONTACT WITH FR CURRIE FOR VISIT. WILL CONTINUE TO FOLLOW
--- NOTE | 2021-07-16 15:31 | NUR ---
RESPONDED TO PT CALL LIGHT, PT STATED HE WANTED TO GO BACK TO THE CPAP AT THIS TIME. PT AWAKE AND ALERT ON THE VAPOTHERM AND NRB MASK AT PREVIOUS SETTINGS. PT DENIES SHORTNESS OF BREATH WHEN ASKED. PT PLACED BACK ON THE CPAP AT 12 AND 70% FIO2. PT REPORTS NO FURTHER NEEDS AT THIS TIME AND IS NOW RESTING IN BED ON THE CPAP, SPO2 91-93%. CALL LIGHT IN REACH, BED IN LOWEST POSITION, WILL CONTINUE PLAN OF CARE.
--- NOTE | 2021-07-16 17:05 | NUR ---
RESPONDED TO PT CALL LIGHT, PT STATED HE WANTED TO PRODUCT DEVELOPMENT INTERN TO HIS VAPOTHERM AND NONREBREATHER. PT STATED HE WAS ALSO GETTING ANXIOUS AT THIS TIME. THIS RN IN TO ADMINISTER PRN VISTARIL AND ASSIST PT WITH TAKING OFF HIS CPAP. PT CHANGED BACK TO VAPOTHERM AT 40LPM 100% FIO2 AND 15+L NRB MASK. PRN MEDICATION ADMINISTERED AT THIS TIME (SEE DEC). 500ML OF IVF FINISHED INFUSING ORDERED, IV ABX STILL INFUSING AT ORDERED RATE. ASSESSMENT COMPLETED AT THIS TIME WELL. PT REPORTS NO FURTHER NEEDS AFTERWARDS, DINNER ORDER TAKEN, PT NOW RESTING IN BED SITTING UP AWAKE AND ALERT. CALL LIGHT IN REACH, BED IN LOWEST POSITION, PT'S IN ROOM, PT SPO2 AT 90% AT THIS TIME, WILL CONTINUE PLAN OF CARE.
--- NOTE | 2021-07-16 18:11 | NUR ---
THIS RN IN TO BRING PT HIS DINNER. PT LAYING ON HIS RIGHT SIDE ON THE VAPOTHERM AT 40LPM 100% FIO2, NRB MASK NOT ON AT THIS TIME, PT'S SPO2 92-94% AT THIS TIME. PT REPOSITIONED IN BED AND NOW SITTING UP IN BED. PT NOW EATING DINNER AT THIS TIME AND REPORTS NO FURTHER NEEDS, CALL LIGHT IN REACH, BED IN LOWEST POSITION, IV ABX INFUSING, WILL CONTINUE PLAN OF CARE.
--- NOTE | 2021-07-16 19:02 | NUR ---
THIS RN IN TO CHECK ON PT. PT SITTING UP IN BED AWAKE AND ALERT ON THE VAPOTHERM AND HAD FINISHED EATING DINNER. PT IV ABX COMPLETE AT THIS TIME, PT MIDLINE FLUSHED AND SALINE LOCKED. MIDLINE SITE WNL. PT STATED HE WANTED TO PRONE AT THIS TIME. PT'S NRB PLACED OVER VAPOTHERM AT 15+L, PT ABLE TO REPOSITION HIMSELF TO A PRONE POSITION AT THIS TIME, ASSISTANCE ONLY NEEDED WITH WIRE MANAGEMENT. PT NOTED TO DESATURATE TO 75% AND REPORTED SOB AFTER REPOSITIONING, PT SPO2 INCREASED SHORTLY AFTER RESTING IN THE PRONE POSITION. PT SPO2 NOW AT 92% WHILE ON THE VAPOTHERM AND NRB MASK. PT REPORTS NO FURTHER NEEDS AT THIS TIME WHEN ASKED, CALL LIGHT IN REACH, BED IN LOWEST POSITION, WILL CONTINUE PLAN OF CARE.
--- NOTE | 2021-07-16 21:00 | NUR ---
SHIFT REPORT RECEIVED FROM MIRNA STEVENS. ASSESSMENT COMPLETED. PT IS ALERT/ORIENTED, REPORTS 4/10 LOW BACK AND HIP PAIN, PRN OXYCODONE GIVEN AND PT REPOSITIONED TO SUPINE FROM PRONE, PILLOWS PLACED UNDER LOW BACK AND HIPS PER REQUEST. PT ALSO FOUND TO HAVE ORAL TEMP OF 100.9, NOTIFIED DR. LOVE AND ORDERS RECEIVED FOR BLOOD CULTURES AND UA. PT'S LUNGS CLEAR IN UPPERS, DIM WITH FINE CRACKLES IN BASES, CURRENTLY ON VAPOTHERM 40L @ 100% WITH 15+L NRB IN PLACE. HR TACHY, 120-140, SCHEDULED METOPROLOL GIVEN. REMAINDER OF ASSESSMENT BENIGN. ROSALES PATENT, CATH CARE PROVIDED, CATH CLAMPED IN PREPARATION FOR URINE COLLECTION. MIDLINE DRESSING C/D/I, FLUSHES WITHOUT RESISTANCE, NO BLOOD RETURN PRESENT, NO SWELLING NOTED & PT DENIES PAIN AT SITE. DISCUSSED PLAN OF CARE WITH PT, QUESTIONS ANSWERED, MEDICATIONS GIVEN PER EMAR.
--- NOTE | 2021-07-16 22:00 | NUR ---
ORDER RECEIVED FOR PRN MOTRIN, GIVEN. LAB IN COLLECTING BLOOD CULTURES. PT GIVEN PRN VISTRAIL EARLY SO THAT HE COULD BE PLACED ON CPAP AT THIS TIME. CPAP 12, FIO2 CURRENTLY 100% TO ALLOW FOR RECOVERY AFTER REPOSITIONING. NOT ABLE TO COLLECT URINE FOR UA AT THIS TIME, WILL TRY AGAIN. PT HAS CALL LIGHT AND VAPOTHERM CANNULA/NRB MASK WITHIN REACH IN CASE HE NEEDS TO REMOVE CPAP MASK. PT DENIES FURTHER NEEDS AT THIS TIME.
--- NOTE | 2021-07-16 22:58 | NUR ---
IN TO START VANCO INFUSION. ABLE TO COLLECT URINE TO SEND TO LAB. PT REPORTS FEELING GOOD, REPORTS PAIN IN LOW BACK AND HIPS HAS RESOLVED. FIO2 TITRATED TO 90%, WILL CONTINUE TO TITRATE APPROPRIATE. HR IMPROVED TO 105-115.
--- NOTE | 2021-07-17 00:14 | NUR ---
ASSESSMENT COMPLETED. PT DENIES PAIN. TEMP IMPROVED TO 99.0 AXILLARY. PT DENIES PAIN. LUNGS DIM IN BASES, REMAINS ON CPAP 12 @ 90%. PT REPOSITIONED HIMSELF ONTO RIGHT SIDE. ROSALES PATENT, DRAINING MARVIN URINE. MIDLINE DRESSING REMAINS C/D/I, INFUSING WNL. HR IMPROVED, NOW 105-115. NO OTHER CHANGES FROM PREVIOUS ASSESSMENT. PT DENIES NEEDS AT THIS TIME, CALL LIGHT WITHIN REACH.
--- NOTE | 2021-07-17 02:00 | NUR ---
PT CONTINUES TO SLEEP ON RIGHT SIDE. VITAL SIGNS STABLE. CPAP SETTINGS UNCHANGED.
--- NOTE | 2021-07-17 04:37 | NUR ---
ASSESSMENT COMPLETED. PT HAS REPOSITIONED HIMSELF FROM RIGHT SIDE TO SUPINE. REPORTS 4/10 LOW BACK PAIN, PRN OXYCODONE GIVEN. CPAP IN PLACE AT 12 AND 90%, LUNGS REMAIN CLEAR, DIM IN BASES. HR 90-100 WHEN ASLEEP, BUT INCREASES TO 100-120 WHEN AWAKE. AFEBRILE AT THIS TIME. ROSALES PATENT, URINE STARTING TO APPEAR LESS CONCENTRATED IN COLOR. MIDLINE SALINE LOCKED, DRESSING REMAINS C/D/I. NO OTHER CHANGES FROM PREVIOUS ASSESSMENT. PT PROVIDED WITH FRESH ICE WATER, NO FURTHER REQUESTS AT THIS TIME. CALL LIGHT WITHIN REACH.
--- NOTE | 2021-07-17 04:55 | NUR ---
DESATURATION TO 80% NOTED ON MONITOR, PT HAD REPOSITIONED IN BED. FIO2 TITRATED TO 100%. HR ALSO ELEVATED 115-120. WARM BLANKET PROVIDED.
--- NOTE | 2021-07-17 06:08 | NUR ---
IN TO START CEFEPIME AND VANCO INFUSIONS. MIDLINE CONTINUES TO FLUSH WITHOUT RESISTANCE, NO BLOOD RETURN PRESENT, DRESSING C/D/I. CPAP FIO2 TITRATED TO 90% FOR SPO2 97%. HR NOW 115-120'S AT REST. RESPIRATIONS IN 40'S. PT DENIES DISCOMFORT OR NEEDS. CALL LIGHT WITHIN REACH.
--- NOTE | 2021-07-17 08:17 | NUR ---
IN PATIENT'S ROOM FOR EVAL. PT'S HR STAYING IN THE 120-130s, SP02 RANGING FROM 90-95% ON CPAP OF 12, 90%. INTO ROOM AND PATIENT LAYING ON LEFT SIDE. PATIENT INDICATES WITH HAND GESTURES THAT HE IS FEELING "SO SO." AXILLARY TEMP 103.2 AND TYLENOL AND MOTRIN GIVEN AT THIS TIME. PT OFF CPAP AND ONTO VAPOTHERM AT 40L AND 100%, PLUS NRB FLUSH ON TOP. PT ABLE TO MANAGE HIS TUBINGS WELL. MIDLINE IV SITE IN LEFT UPPER ARM FLUSHED W/ 10 ML NS AND CURRENTLY PULLS BLOOD BACK, WHICH IS HAD NOT EARLIER. IV VANCO ALMOST COMPLETE, AND IV CEFEPIME INFUSING. IV LEVAQUIN TO INFUSE NEXT. PRN COUGH MEDS GIVEN WELL PSEUDOPHED (SEE EMAR). PT HAVING PRODUCTION TO HIS COUGH, WHICH IS YELLOWISH/WHITEISH IN COLOR. PT ABLE TO TALK IN FULL SENTENCES, BUT STILL SEEMS SOMEWHAT WINDED. CONTINUE TO MONITOR CLOSEY. PLAN OF CARE DISCUSSED WITH PATIENT.
--- NOTE | 2021-07-17 09:01 | NUR ---
RT IN ROOM AT THIS TIME. PT STILL SITTING UPRIGHT IN BED AND HAS YET TO EAT HIS BREAKFAST. PT REMAINS ON VAPOTHERM AT 40L AND 100%, WITH NRB ON TOP. PATIENT HAS BEEN WORKING ON "BLOWING HIS NOSE" AND WHEN HE DOES THIS, HE OF COURSE TAKES OFF THE VAPOTHERM TO BLOW, AND RESULTINGLY THE SP02 DROPS. LOWEST THUS FAR THIS AM IS 75%, BUT SP02 QUICKLY RECOVERS AFTER PLACING VAPOTHERM AND NRB BACK ON. PT STATES HIS LENI WILL BE IN TODAY TO SEE HIM. CONTINUE TO MONITOR.
--- NOTE | 2021-07-17 09:59 | NUR ---
PATIENT USES CALL LIGHT AND WANTS HELP GETTING INTO PRONE POSITION. PT HELPED INTO THIS POSITION AND TOLERATING WELL ON VAPOTHERM. INTO PRONE AT 0950. PT STILL USING NRB ON TOP OF VAPOTHERM. SP02 IS CURRENTLY 87-88% PATIENT IS GETTING SETTLED INTO HIS POSITION. LAST BP 114/57. URINE OUTPUT WAS 275 AT 100. CONTINUE TO MONITOR.
--- NOTE | 2021-07-17 11:30 | NUR ---
Update from CCU RN. Pt will fever to 103 and antibiotics restarted. No plan for dc today.
--- NOTE | 2021-07-17 11:48 | NUR ---
IN PATIENT'S ROOM TO CHECK ON PATIENT AND SILENCE IV PUMPS. PATIENT'S LENI IN ROOM AT THIS TIME. PT REMAINS ASLEEP AT THIS AND STILL IN PRONE POSITION. PT REMAINS ON VAPOTHERM AT 40L AND 100% AND SP02 IS STAYING >90%, RIGHT NOW AT 93%. HR IN THE 100-110s AT THIS TIME. RR RANGING IN THE UPPER 20-LOW 30s WHILE ASLEEP. ASSESSMENT DEFERRED UNTIL PATIENT AWAKENS.
--- NOTE | 2021-07-17 12:47 | NUR ---
IN ROOM TO HELP PATIENT OUT OF PRONE POSITION. SP02 DROPS TO LOW 78% WITH THIS ACTIVITY. LUNCH ORDERED FOR PATIENT BY HIS . PT BACK ON CPAP NOW FOR A LITTLE WHILE BEFORE LUNCH COMES. PLAN MADE TO DO HYGIENE CARES AFTER LUNCH. CONTINUE TO MONITOR.
--- NOTE | 2021-07-17 13:30 | NUR ---
Patient lunch has been delivered, RT called to do Covid swab on patient. Rt, while in room also set patient up on vapotherm for patient while eating lunch. remains in the room. Per RT, Ruben, no patient concerns at this time.
--- NOTE | 2021-07-17 13:45 | NUR ---
BOTH NARES SWABBED FOR COVID-19 WITHOUT COMPLICATION. SAMPLE TAKEN TO LAB.
--- NOTE | 2021-07-17 15:25 | NUR ---
SITTING UP IN BED,IS CURRENTLY ON VAPOTHERM 100%,40 LITERS WITH NRBM. SHAVE GIVEN, TOLERATED WELL. UPON TURNING TO LEFT SIDE O2 SAT DOWN TO 80. CPAP ON, INCREASED TO 100% UNTIL O2 SAT ABOVE >90, THEN FOI2 DECREASED TO 90. RR-44
--- NOTE | 2021-07-17 15:45 | NUR ---
ASSESSMENT DONE. PATIENT CONTINUES TO LAY ON LEFT SIDE, ON CPAP.
--- NOTE | 2021-07-17 18:45 | NUR ---
INTO PATIENT'S ROOM TO HELP PATIENT GET SAT UP IN BED, AND TO GET READY FOR DINNER. IV DIFLUCAN STARTED AND EXPLAINED TO PATIENT AND . TEMP NOW 98.7 AXILLARY, AND PT DOES NOT SEEM LABORED IN HIS BREATHING. DISCUSSION HAD WITH PATIENT AND HIS REGARDING WHAT HIS HOSPITAL COURSE HAS LOOKED LIKE THUS FAR, AND POTENTIAL THINGS THAT PATIENT COULD NEED, SUCH A VENTILATOR. BOTH PATIENT AND ASKING GOOD, RELEVANT QUESTIONS REGARDING THESE THINGS AND SEEM TO HAVE A REALISTIC UNDERSTANDING OF WHAT IS HAPPENING. HR REMAINS IN THE 120s AT THIS TIME WHILE PATIENT IS SITTING UP IN BED EATING. PT STILL NEEDING TO WEAR VAPOTHERM AND NRB AT FLUSH TO KEEP SP02 >90%. PT NEEDING TO TAKE BREAKS FROM EATING TO GET SP02 HIGHER. PATIENT ALSO C/O CATHETER BOTHERING HIM AND THE NEED TO "VOID." CATHETER ASSESSED AND WAS TURNED IN A WAY THAT WASN'T ALLOWING FOR FREE FLOW OF URINE, BUT ONCE RELEASED, GOOD AMOUTN OF CLEAR YELLOW URINE RETURNED. SP02 NOW 90-92% ON VAPOTHERM MAX SETTINGS AND NRB FLUSH. CONTINUE TO MONITOR.
--- NOTE | 2021-07-17 20:40 | NUR ---
SHIFT REPORT RECEIVED FROM MIRNA HOOVER. ASSESSMENT COMPLETED. PT IS ALERT/ORIENTED, SOMEWHAT ANXIOUS-PRN VISTARIL GIVEN. REPORTS 4/10 PAIN TO HIPS, PRN OXYCODONE GIVEN. TEMP CURRENLT 99.5, SCHEDULED TYLENOL GIVEN. LUNGS CLEAR WITH FINE CRACKLES IN BASES, CURRENTLY ON VAPOTHERM 40L @ 100% WITH NRB AT 15+L. HR REGULAR, RATE 100-120, METOPROLOL GIVEN. ROSALES PATENT, DRAINING YELLOW URINE, CATH CARE PROVIDED. BOWEL TONES ACTIVE, DENIES NAUSEA, PT WORRIED ABOUT NEEDING TO HAVE BM, BSC PLACED NEXT TO BED TO EASE PT'S MIND IN CASE HE NEEDS TO GET UP QUICKLY. SKIN GROSSLY INTACT WITHOUT EDEMA, CMS INTACT. MIDLINE DRESSING C/D/I, FLUSHES WITHOUT RESISTANCE, SLOW BLOOD RETURN NOTED IN TUBING. AFTER EVENING MEDS, PT PLACED ON CPAP 15 @ 100%. DENIES FURTHER NEEDS, CALL LIGHT WITHIN REACH.
--- NOTE | 2021-07-17 22:40 | NUR ---
IN TO START ANTIBIOTIC INFUSIONS PER EMAR. RECHECKED TEMP, 98.1 AXILLARY AT THIS TIME. PT HAS REPOSITIONED HIMSELF ONTO LEFT SIDE. CPAP REMAINS IN PLACE, SETTINGS UNCHANGED. HR IMPROVED SINCE METOPROLOL, NOW 90-100.
--- NOTE | 2021-07-18 00:42 | NUR ---
ASSESSMENT COMPLETED. PT DENIES PAIN AT THIS TIME. AFEBRILE. LUNGS REMAIN CLEAR IN UPPERS WITH FINE CRACKLES IN BASES. CPAP PRESSURE INCREASED TO 16, FIO2 REMAINS AT 100%. HR REGULAR, RATE 90-110. BOWEL TONES ACTIVE. ROSALES PATENT, UO QS. MIDLINE REMAINS C/D/I, FLUIDS INFUSING WNL. PT DENIES NEEDS, HAS REPOSITIONED HIMSELF TO SUPINE. CALL LIGHT WITHIN REACH.
--- NOTE | 2021-07-18 01:51 | NUR ---
CALL LIGHT ON. PROVIDED WARM BLANKETS. pt ON LEFT SIDE, RESPIRATIONS 40-50. CPAP ON. CRISTIAN LIGHT WITHIN REACH.
--- NOTE | 2021-07-18 02:19 | NUR ---
NOTICED INCREASED HR 100-120 AND INCREASED RESPIRATIONS 45-60, WELL , OCCASIONAL DESATURATIONS TO ~85% DESPITE REMAINING ON CPAP. IN TO CHECK ON PT WHO HAD RECENTLY REPOSITIONED IN BED. TEMP 99.8 AXILLARY AT THIS TIME, PRN MOTRIN GIVEN. UPDATED, NO NEW ORDERS AT THIS TIME.
--- NOTE | 2021-07-18 04:02 | NUR ---
DIFFICULT TIME OBTAINING VBG, MIDLINE WOULD NOT RETURN ENOUGH BLOOD FOR LABS AND PT'S TEMP HAD INCREASED TO 100.6 AND VEINS WERE DIFFICULT TO ACCESS. FLOOR LAYER RN, BENITEZ ABLE TO GET SAMPLE FOR VBG. ASSESSMENT COMPLETED. PT REPORTS 4/10 HIP PAIN, ASSISTED HIM TO REPOSITION HIS PILLOWS AND ADMINISTERED PRN OXYCODONE. PT REQUESTS MEDICATION FOR ANXIETY, PRN VISTARIL GIVEN. LUNGS CONTINUE TO HAVE FINE CRACKLES IN BASES, CPAP 16 @ 100% REMAINS IN PLACE. HR REMAINS TACHY 110-125. ROSALES PATENT, YELLOW URINE. PT DENIES FURTHER NEEDS AT THIS TIME, CALL LIGHT WITHIN REACH.
--- NOTE | 2021-07-18 06:10 | NUR ---
IN TO START ANTIBIOTIC INFUSIONS PER EMAR. RECHECKED TEMP, 99.8 AXILLARY AT THIS TIME. ROSALES EMPTIED, CONTINUES TO HAVE QS UO. CPAP IN PLACE, SETTINGS UNCHANGED. PT DENIES NEEDS AT THIS TIME.
--- NOTE | 2021-07-18 07:30 | NUR ---
0700: PT REPORTS NEED TO HAVE BM. PT IS ADAMANT ABOUT NOT USING BEDPAN AND REQUESTS TO USE BSC. PT ALSO INSISTS THAT HE SWITCH TO VAPOTHERM WITH NRB GETTING UP WITH CPAP IN PLACE CAUSES HIM ANXIETY AND HE STATES HE IS ALREADY ANXIOUS ABOUT NEEDING TO HAVE BM. PT UP TO BSC, TOLERATED FAIR AT FIRST, BUT THEN BEGAN TO DESATURATE TO MID 60'S%. WHEN GETTING CLEANED UP AND THEN BACK TO BED, SPO2 DROPPED TO 25-30%, HR INCREASED TO 150'S. PT BACK IN BED WITH CPAP IN PLACE, PRESSURE INCREASED TO 18 FOR RECOVERY AND THEN BACK TO 16. PT SLOW TO RECOVER SPO2>90%. NOW HR:119, SPO2:92%. REPORT GIVEN TO DAY SHIFT NURSES.
--- NOTE | 2021-07-18 07:55 | NUR ---
SIGNIFICANT INCREASE IN WOB SINCE YESTERDAY BBS TUBULAR WITH FINE RALES IN THE BASES. DR. LOVE WILL BE NOTIFIED BY RT UPON EXITING PT ROOM. BVM AT BEDSIDE.
--- NOTE | 2021-07-18 08:02 | NUR ---
PATIENT'S CALLED BACK TO GIVE HER AN UPDATE FROM THIS EVENING. RT NOW IN ROOM WITH PATIENT. PATIENT'S WNATING TO KNOW IF PATIENT'S MOTHER CAN COME IN TODAY WELL. DR. LOVE CALLED BY RT TO GIVE UPDATE.
--- NOTE | 2021-07-18 08:13 | NUR ---
PATIENT RESTING IN BED, RT AT BEDSIDE. ROSALES EMPTIED. CALL LIGHT IN REACH
--- NOTE | 2021-07-18 08:36 | NUR ---
IN ROOM WITH PATIENT TO GIVE AM MEDS. DR. LOVE IN ROOM WIHT PATIENT DISCUSSING POTENTIALLY PLACING PATIENT ON VENTILATOR AND TRANSFERRING PATIENT. PATIENT CURRNELY BREATHING 40-50s, SP02 IS 96% ON BIPAP OF 18/12 AND 100%. HR 130s. PT TEXTING WITH HIS ON PHONE.
--- NOTE | 2021-07-18 12:39 | NUR ---
DR LOVE CONSULTED WITH ME REGARDING SPIRITUAL CARE AND COMFORT FOR BOTH PT AND FAMILY. PT IS TO BE INTEBATED AND TRANSFERRED. CONTACTED FR CASTILLO AND DEACON ADRIANA NEGRETE IMMEDIATELY. THEY HAVE A RELATIONSHIP WITH FAMILY. THEY OFFERED PRAYER AT DOOR, AND MOTHER EMOTIONAL. WILL REMAIN WITH FAMILY. MIRNA ARAGON REQUESTED FURTHER SPIRITUAL CARE. DIGITAL OPERATIONS ANALYST SENIOR QA ENGINEER CALLED IN AND WILL REMAIN WITH FAMILY NEEDED. GAVE P.SHAWL TO . WILL FOLLOW NEEDED
--- NOTE | 2021-07-18 13:49 | NUR ---
Attempting to get bed space for pt at a higher level of care since 0845 this morning. Patient is on waitlists at [facility] in [place] and [facility] in [place]. Also working with [facility] in [place]. [place] called back and patient' insurance is requiring prior authorization. Spoke with Daniela and Ignacio in case management/ utilization review, and they will make phone calls. Hospitals that declined pt due to no bedspace: [facility], [facility], [facility], [facility]. [facility], [facility]. [place] and [facility].
--- NOTE | 2021-07-18 14:31 | NUR ---
REPORT RECEIVED FROM KIKO BRADLEY. TAKING OVER CARE WHILE SHE IS ON BREAK. PATIENT HAS AT BEDSIDE WITH HIM, NAYE RT IN TO CHECK ON VENT SETTINGS. TEACHING SPOUSE ABOUT SEDATION LEVELS AND OUR GOALS FOR THEM.
--- NOTE | 2021-07-18 14:40 | NUR ---
BP DOWN TO 91/62 WITH HR 105, PATIENT NOT RESPONDING TO PAINFUL STIMULI, PROPOFOL TURNED DOWN FROM 80MCG/KG/MIN TO 60MCG/KG/MIN.
--- NOTE | 2021-07-18 14:56 | NUR ---
PROPOFOL CONTINUES AT 60MCG/KG/MIN AND BP IS 95/59 AND HR 105. RR IS 55 PER VENT SETTINGS.
--- NOTE | 2021-07-18 15:54 | NUR ---
PATIENT PRONED WITH 6 PERSON ASSIST. PT'S LEFT ARM IS UP IN SWIMMERS POSITION AT THIS TIME, RIGHT ARM IS DOWN AT HIS SIDE. PATIENT REMAINS ON VT OF 300, VC/AC OF 37, PEEP 12, FI02 100%. PT REMAINS ON PROPOFOL GTT AT 50 MCG/KG/MIN, PRECEDEX AT 0.8 MCG/KG/HR, AND ROCURONIUM AT 8 MCG/KG/MIN. LR INFUSING AT 75 ML/HR. IV CEFEPIME INFUSING.
--- NOTE | 2021-07-18 16:05 | NUR ---
EMERGENCY MEDICINE IN ROOM TO ROOM TO PLACE ART LINE IN LEFT WRIST.
--- NOTE | 2021-07-18 17:02 | NUR ---
1133 - PATIENT INTUBATED BY ANTON SAINI WITH A 7.5 ETT, SECURED AT 23 AT THE LIP. VENT SETTINGS PER RT AND DR. LOVE. 1200 - 60 MG IV PUSH OF PROPOFOL GIVEN FOR SEDATION. PT STARTED ON PROPFOL GTT ALSO (SEE EMAR). 1213 - 50 MG IV PUSH OF PROPOFOL GIVEN. PROPOFOL CONTINUES TO BE TITRATED UP. PRECEDEX GTT STARTED. 1227 - ROCURONIUM IV PUSH OF [address] LOVE. PRECEDEX GTT TITRATED UP. 1241 - PRECEDEX AND PROPOFOL TITRATED UP. 1250 - PRECEDEX AND PROPOFOL TITRATED UP. 1339 - ROCURONIUM IV PUSH GIVEN PER DR. LOVE OF 50 MG IV. 1400 - ROCURONIUM GTT STARTED AT 8 MCG/KG/MIN. 1410 - PROPOFOL TITRATED DOWN PER BLOOD PRESSURE. 1440 - PROPOFOL TITRATED DOWN PER BLOOD PRESSURE.
--- NOTE | 2021-07-18 18:19 | NUR ---
PATIENT'S HEAD TURNED TO LEFT SIDE AT 1730. PT TOLERATED WELL. REMAINS ON VENT RR 37, FI02 85%, PEEP 12, VT 300. PATIENT'S NOW BACK IN ROOM. ABG TO BE DRAWN.
--- NOTE | 2021-07-18 18:25 | NUR ---
Called in by Min to the CCU at 1223 for PT's family. PT is waiting on a transfer after being intubated. I checked in with Britany Mars, and she updated me on the situation and asked me to work with the family. I met with the family and visited with them and they were happy to have me pray for PT. I talked with Mark Ramos about getting them some beverages and she had me order them a hospitality tray. I updated them several times throughout the afternoon on the transfer. Once PT's was out of the PT's room I checked in with her. She was needing something in her stomach and requested a milkshake which we were able to get her. Once in the quiet with with her family, I prayed again for her and for a bed to open up in the hospital that would help him. After some time we sent the family home except for the PT's . I sat with her after they left and let her process with me. She planned to visit with PTs for a bit and then go home to check in with her daughters. I let her know that I would continue to pray for her and her . She thanked me for supporting her during this time.
--- NOTE | 2021-07-18 18:42 | NUR ---
ABG DRAWN FROM ART LINE W/O COMPLICATION AND SENT TO LAB. PROPOFOL REMAINS AT 50 MCG/KG/MIN, PRECEDEX AT 0.8 MCG/KG/HR, AND ROCURONIUM AT 8 MCG/KG/MIN. LR AT 75 ML/HR CONTINUES.
--- NOTE | 2021-07-18 19:21 | NUR ---
LATE ENTRY NOTE: 0830 - IN PATIENT'S ROOM AROUND THIS TIME TO DISCUSS PATIENT'S CONDITION WITH HIM AND DR. LOVE. PLAN IS BEING DISCUSSED WITH PATIENT REGARDING WHAT SHOULD HAPPEN NEXT, WITH REGARDS TO POTENTIALLY GOING ONTO VENTILATOR. PATIENT WANTING TO DISCUSS THINGS WITH HIS AND SHE IS GOING TO ARRIVE. PATIENT GIVEN TYLENOL THIS AM PO BUT THEN PLACES BIPAP MASK BACK ON. PT WAS SWITCHED FROM CPAP TO BIPAP THIS AM DUE TO LOW SP02 AND INCREASED WOB. 0930 - PATIENT'S ARRIVES AND GIVEN AN UPDATE OUTSIDE OF ROOM. PATIENT AND THEN DISCUSSING THINGS AMONG THEMSELVES. PT'S MOTHER ALSO ARRIVES AND GIVEN AN UPDATE. 1100 - DR. LOVE IN ROOM AGAIN TO SEE PATIENT AND MORE QUESTIONS BEING ANSWERED BEST POSSIBLE. PLAN IS FOR PATIENT TO BE INTUBATED AT 1200, BUT PATIENT ENDED UP BEING INTUBATED AT 1133 PER PARVEEN WALTON.
--- NOTE | 2021-07-18 19:59 | NUR ---
Pt remains on waitlist at [facility], now on waitlist for possible ECMO at [facility], and still awaiting a call back from [facility]. CCU staff and night worker aware of waitlists and to watch for return calls on CCU phone.
--- NOTE | 2021-07-18 20:00 | NUR ---
SHIFT REPORT RECEIVED FROM MIRNA HOOVER. PT INTUBATED, SEDATED, AND PARALYZED. VENT SETTINGS: VC-AC, RATE 37, FIO2 85%, VT 300, PEEP 12. CURRENTLY ETCO2:52, PIP:42. SEDATION: PROPOFOL @ 50MCG/KG/MIN, PRECEDEX @ 0.8MCG/KG/HR, AND ROCURONIUM @ 8MCG/KG/MIN. ALSO HAS LR INFUSING AT 75ML/HR. ART LINE TO RIGHT RADIAL ARTERY, DRESSING C/D/I, LINE HAS BRISK BLOOD RETURN, LINE LEVELED AND ZEROED, SQUARE WAVE TEST AND WAVEFORM ARE WNL. [id number] PERFORMED WITH ANTON SAINI, CURRENTLY 10/09. PT IS PRONED WITH HEAD TURNED TO RIGHT AND RIGHT ARM UP. LUNGS HAVE COARSE CRACKLES THROUGHOUT. HR REGULAR, RATE 90'S. SKIN GROSSLY INTACT WITHOUT EDEMA, PULSES FAINT. IV SITES INTACT AND PATENT, MIDLINE C/D/I, FLUSHES WITHOUT RESISTANCE, NO BLOOD RETURN PRESENT. OG TO L.I.S. DRAINING GREEN FLUID. ETT IS #7.5, IS 22CM AT LIP. RESTRAINTS REMOVED FROM WRISTS PT IS PARALYZED.
--- NOTE | 2021-07-18 21:00 | NUR ---
PT REPOSITIONED IN BED, HEAD TURNED TO LEFT, LEFT ARM AND LEG BENT UPWARD IN SWIMMER'S POSITION. INLINE SUCTIONING PROVIDED, MODERATE AMOUNT OF THIN CLEAR SECRETIONS NOTED. ETT MOVED TO LEFT SIDE OF MOUTH AND SPO2 MONITOR MOVED TO LEFT NARE. WEDGE PLACED UNDER LEFT SIDE WELL TO TILT PT. ROSALES BAG CHANGED TO UROMETER AND UA SENT. RASS REMAINS -5.
--- NOTE | 2021-07-18 22:30 | NUR ---
FENTANYL DRIP STARTED AT 25MCG/HR, VERIFIED WITH MIRNA VARELA. OTHER SEDATION REMAINS UNCHANGED.
--- NOTE | 2021-07-18 23:00 | NUR ---
PT REPOSITIONED WITH FACE TOWARDS RIGHT, ETT REPOSITIONED TO RIGHT SIDE OF MOUTH AND SPO2 PROBE MOVED TO RIGHT NARE. RIGHT ARM AND LEG UP, WEDGE UNDER RIGHT SIDE. ORAL SUCTIONING PROVIDED, SMALL AMOUNT OF CLEAR SECRETIONS NOTED. RECHECKED TEMP, 99.2 ORALLY. ROSALES EMPTIED OF 255ML CLEAR YELLOW URINE.
--- NOTE | 2021-07-19 | NUR ---
ASSESSMENT COMPLETED. [id number] 0 TO 1 OUT OF 4. SEDATION UNCHANGED. VENT SETTINGS UNCHANGED. ART LINE WNL. LUNGS SOUND LESS COARSE AT THIST TIME, CRACKLES REMAIN IN BASES. AFEBRILE, TEMP 98.8 ORALLY.
--- NOTE | 2021-07-19 01:00 | NUR ---
PT REPOSITIONED, HEAD FACING LEFT, LEFT ARM AND LEG UP, WEDGE UNDER LEFT SIDE. ART LINE LEVELED AND ZEROED. ROSALES EMPTIED 125ML CLEAR YELLOW URINE. VENT SETTINGS AND SEDATION UNCHANGED.
--- NOTE | 2021-07-19 03:00 | NUR ---
PT REMAINS PRONED, REPOSITIONED SO THAT HEAD IS FACING RIGHT, RIGH ARM AND LEG ARE BENT UP, WEDGE UNDER LEFT SIDE. ART LINE LEVELED, SQUARE WAVE TEST AND WAVEFORM WNL. ETT MOVED TO RIGHT SIDE OF MOUTH, PULSE OX MOVED TO RIGHT NARE. ROSALES EMPTIED 195ML CLEAR YELLOW URINE. ORAL SUCTIONING DONE, SCANT AMOUNT OF YELLOW SECRETIONS NOTED. 1ML AIR ADDED TO ETT BALLOON DUE TO AIR LEAK, LEAK RESOLVED AFTERWARD AND PRESSURE IN GREEN AREA. TEMP 99.4 ORALLY AT THIS TIME.
--- NOTE | 2021-07-19 05:00 | NUR ---
PT REPOSITIONED IN BED, HEAD FACING LEFT, LEFT ARM AND LEG BENT UP, WEDGE UNDER LEFT SIDE. ETT REPOSITIONED TO LEFT SIDE OF MOUTH, PULSE OX TO LEFT NARE. LABS DRAWN VIA ART LINE, CONTINUES TO HAVE BRISK BLOOD RETURN, FLUSHES EASILY, LINE LEVELED AND ZEROED. [facility] HAS A BED READY, HYDRAULIC LIFT OPERATOR AWARE AND CONTACTING [facility]. PT'S NOTIFIED.
[2021-07-19] MEDS ORDERED: CEFEPIME HCL2 GM IV (05:40)
[2021-07-19] MEDS ORDERED: FLUCONAZOLE200 MG PO (05:41)
[2021-07-19] MEDS ORDERED: ALBUTEROL2.5 MG/3 M INH (05:42)
[2021-07-19] MEDS ORDERED: METOPROLOL TART25 MG PO (05:42)
[2021-07-19] MEDS ORDERED: ROCURONIUM IV (05:42)
[2021-07-19] MEDS ORDERED: ENOXAPARIN40 MG/0.4 SUB-Q (05:42)
[2021-07-19] MEDS ORDERED: OXYCODONE HCL5 MG PO (05:43)
[2021-07-19] MEDS ORDERED: IBUPROFEN400 MG PO (05:43)
[2021-07-19] MEDS ORDERED: QUETIAPINE FUMA25 MG PO (05:44)
[2021-07-19] MEDS ORDERED: ACETAMINOPHEN650 MG PR (05:44)
[2021-07-19] MEDS ORDERED: PANTOPRAZOLE SO40 MG PO (05:45)
--- NOTE | 2021-07-19 06:00 | NUR ---
REPORT CALLED TO MIRNA CHO AT [facility].
--- NOTE | 2021-07-19 07:00 | NUR ---
PT'S ARRIVED ~0600 TO SEE PT AND GET HIS BELONGINGS. CONTACT NUMBER FOR [facility] GIVEN TO HER. [facility] CREW ARRIVED AT 0610, PT TRANSFERRED TO THEIR STRETCHER AND EQUIPMENT, TOLERATED WELL. PT REMAINS PRONED. LEFT HERE AT 0645.
== END 2021-07-19 06:45 | disposition short-term general hospital (02) | DRG 208 ==
LOC: ED 10:24 → MS 12:11 → CCU 12:11 → MS 07-07 14:45 → CCU 07-14 11:30
PROVIDERS: ADMIT Student in an Organized Health Care Education/Training Program; ATTEND Student in an Organized Health Care Education/Training Program
PROC: 8E0ZXY6 Isolation (ICD-10-PCS; 2021-06-30)
PROC: XW033E5 Introduction of Remdesivir Anti-infective into Peripheral Vein, Percutaneous Approach, New Technology Group 5 (ICD-10-PCS; 2021-06-30)
PROC: 3E0333Z Introduction of Anti-inflammatory into Peripheral Vein, Percutaneous Approach (ICD-10-PCS; 2021-06-30)
PROC: 5A09557 Assistance with Respiratory Ventilation, Greater than 96 Consecutive Hours, Continuous Positive Airway Pressure (ICD-10-PCS; 2021-07-04)
PROC: 0BH18EZ Insertion of Endotracheal Airway into Trachea, Via Natural or Artificial Opening Endoscopic (ICD-10-PCS; principal; 2021-07-18)
PROC: 5A1935Z Respiratory Ventilation, Less than 24 Consecutive Hours (ICD-10-PCS; 2021-07-18)
DX: U07.1 COVID-19 (principal); J12.82 Pneumonia due to coronavirus disease 2019; J80 Acute respiratory distress syndrome; G36.0 Neuromyelitis optica [Devic]; G47.00 Insomnia, unspecified; R73.03 Prediabetes; T38.0X5A Adverse effect of glucocorticoids and synthetic analogues, initial encounter
CPT/HCPCS: 31500; 36600; 71045; 71260; 80048; 80053; 80076; 80202; 81001; 82803; 83036; 83605; 83735; 85007; 85025; 85651; 87040; 87070; 87088; 87205; 94002; 94003; 94640; 94660; 94668; 94760; 94762; 94799; 99285-25; A9270; C9803; J0330; J0456; J0692; J1100; J1450; J1650; J1815; J1956; J2001; J2250; J2270; J2405; J2704; J2920; J3010; J3370; J3475; J7050; J7060; J7121; Q0177; Q9967; U0003

== ENCOUNTER 2021-10-14 13:00 | Emergency (ER) | payer OTHER ==
[~2021-10-14] VITALS: Ht 182.9 cm; Wt 82.8 kg
[~2021-10-14 13:00] MED LIST: ACETAMINOPHEN650 MG PR; ALBUTEROL2.5 MG/3 M INH; AMBIEN5 MG PO; BACLOFEN5 GM MISC; BENZONATATE100 MG PO; CEFEPIME HCL2 GM IV; ENOXAPARIN40 MG/0.4 SUB-Q; FLUCONAZOLE200 MG PO; IBUPROFEN200 MG PO; IBUPROFEN400 MG PO; METOPROLOL TART25 MG PO; ONDANSETRON ODT8 MG PO; OXYCODONE HCL5 MG PO; PANTOPRAZOLE SO40 MG PO; QUETIAPINE FUMA25 MG PO; RITUXAN10 MG/1 ML IV; ROCURONIUM IV; TYLENOL325 M1 PO; VITAMIN D350 MC3 PO; ZOFRAN4 MG PO
--- OUTSIDE RECORDS SUMMARY | 2021-10-14 13:04 | XMS ---
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 Malachi has no Care Guidelines for this patient. Abdi VISIT COUNT (12 MO.) 2 [facility] TOTAL 2 NOTE: Visits indicate total known visits. ED/UCC VISIT TRACKING (12 MO.) 10/14/2021 13:01 [facility] TYPE: Emergency COMPLAINT: - FLU SYMP 06/30/2021 10:25 [facility] TYPE: Emergency COMPLAINT: - COVID +, SOB INPATIENT VISIT TRACKING (12 MO.) 07/19/2021 09:16 [facility] TYPE: Internal Medicine DIAGNOSES: 11211. COVID-19 55706. Acute respiratory failure with hypoxia 10275. COVID ARDS 97080. Sepsis, unspecified organism 02068. COVID-19 03342. Acute respiratory failure with hypoxia 66481. Methicillin susceptible Staphylococcus aureus infection as the cause of diseases classified elsewhere 26957. Severe sepsis with septic shock 55282. 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
[2021-10-14] MEDS ORDERED: METOPROLOL TAR100 MG PO (14:03)
[2021-10-14] MEDS ORDERED: GABAPENTIN300 MG PO (14:03)
[2021-10-14] MEDS ORDERED: ELIQUIS5 MG PO (14:04)
[2021-10-14] MEDS ORDERED: AMLODIPINE BESY10 MG PO (14:04)
[2021-10-14] MEDS ORDERED: HYDROXYZINE HCL25 MG PO (14:05)
[2021-10-14] MEDS ORDERED: TRAZODONE HCL50 MG PO (14:06)
== END 2021-10-14 17:40 | disposition home or self-care (01) ==
LOC: ED 13:00
DX: U07.1 COVID-19 (principal); Z79.899 Other long term (current) drug therapy; Z23 Encounter for immunization
CPT/HCPCS: 99283-25; M0243; Q0244